=== PATIENT | male | born 1965 | race Caucasian/White ===

== ENCOUNTER 2018-07-15 21:06 | Emergency (ER) | payer MEDICAID ==
[~2018-07-15] VITALS: Ht 180.3 cm; Wt 58.0 kg
[~2018-07-15 21:06] MED LIST: MULT-1085 PO; NAPR-1144 PO; TYLENOL
[2018-07-15] MEDS ORDERED: ondansetron 4mg rapidly disintigrating tab PO ONE (22:05)
[2018-07-15] MEDS ORDERED: HYDROcodone/acetaminophen 10/325mg tab PO ONE (22:05)
[2018-07-15] MEDS ORDERED: diazepam 5mg tablet PO ONE (22:05)
[2018-07-15] MEDS ORDERED: VAL5T PO (23:25)
[2018-07-15] MEDS ORDERED: HYDR-3965 PO (23:25)
[2018-07-15] MEDS ORDERED: ONDA4TAB9 SL (23:25)
[2018-07-15] MEDS ORDERED: METH500T PO (23:25)
[2018-07-15 23:45] VITALS: BP 123/75
== END 2018-07-15 23:47 | disposition home or self-care (01) ==
LOC: ER 21:08
DX: S76.011A Strain of muscle, fascia and tendon of right hip, initial encounter (principal); Z79.899 Other long term (current) drug therapy; Y93.89 Activity, other specified; Y92.89 Other specified places as the place of occurrence of the external cause; Y99.8 Other external cause status
CPT/HCPCS: 72192; 99284

== ENCOUNTER 2018-10-30 02:15 | Emergency (ER) | payer MEDICAID ==
[~2018-10-30] VITALS: Ht 180.3 cm; Wt 77.0 kg
[~2018-10-30 02:15] MED LIST changes: +METH500T PO
[2018-10-30 02:18] VITALS: BP 129/77
[2018-10-30] MEDS ORDERED: TETanus/Pertussis (Acell)/Diphther VAC/PF (Tdap-Adult) 0.5ml syringe IM ONE (04:15)
[2018-10-30] MEDS ORDERED: LIDOcaine 1.5% w/epinephrine 1:200,000 5ml ampul IJ ONE (04:15)
[2018-10-30] MEDS ORDERED: sulfamethoxazole/trimethoprim DS (800/160mg) tablet PO ONE (04:20)
[2018-10-30] MEDS ORDERED: LIDOcaine 1% w/EPI 1:100,000 30ml vial (MDV) IJ ONE (04:30)
[2018-10-30] MEDS ORDERED: vancomycin/NS 1 GM ADD-VANTAGE 250 ML IV ONE (04:50)
[2018-10-30 05:31] LABS: ALANINE AMINOTRANSFERASE 28 U/L (12-78); ALBUMIN 3.5 G/DL (3.4-5.0); ALKALINE PHOSPHATASE 62 IU/L (46-116); ANION GAP 7 (8-16); ASPARTATE AMINO TRANSFERASE 23 U/L (10-37); BILIRUBIN,TOTAL 0.3 MG/DL (0.1-1.0); BLOOD UREA NITROGEN 12 MG/DL (7-18); BUN/CREATININE RATIO 14.3 (5.4-32.0); CALCIUM 8.7 MG/DL (8.5-10.1); CHLORIDE 104 MMOL/L (99-107); CREATININE 0.84 MG/DL (0.60-1.10); GLUCOSE 105 MG/DL (70-104); POTASSIUM 3.8 MMOL/L (3.5-5.1); SODIUM 139 MMOL/L (135-145); TOTAL CARBON DIOXIDE 28.2 MMOL/L (24-32); TOTAL PROTEIN 7.1 G/DL (6.4-8.2); eGFR > 90 ML/MIN
[2018-10-30] MEDS ORDERED: HYDR-4383 PO (05:36)
[2018-10-30] MEDS ORDERED: SULF1TAB48 PO (05:36)
[2018-10-30 05:41] LABS: BASOPHILS % (AUTO) 0.3 % (0-1); EOSINOPHILS # (AUTO) 0.1 X10'3 (0-0.9); EOSINOPHILS % (AUTO) 1.1 % (0-6); HEMATOCRIT 38.4 % (42.0-52.0); HEMOGLOBIN 12.8 g/dl (14.0-17.9); LYMPHOCYTES # (AUTO) 1.4 X10'3 (1.1-4.8); LYMPHOCYTES % (AUTO) 17.4 % (21-51); MEAN CORPUSCULAR HEMOGLOBIN 31.2 PG (27.0-31.0); MEAN CORPUSCULAR HGB CONC 33.4 % (33.0-36.5); MEAN CORPUSCULAR VOLUME 93.3 FL (78-98); MEAN PLATELET VOLUME 8.1 FL (7.4-10.4); MONOCYTES # (AUTO) 0.6 X10'3 (0-0.9); MONOCYTES % (AUTO) 7.8 % (2-12); NEUTROPHILS # (AUTO) 5.8 X10'3 (1.8-7.7); NEUTROPHILS % (AUTO) 73.4 % (42-75); PLATELET COUNT 196 X10'3 (140-440); RED BLOOD COUNT 4.11 X10'6 (4.70-6.10); RED CELL DISTRIBUTION WIDTH 15.2 % (11.5-14.5)
[2018-10-31] MEDS ORDERED: CEPH-572 PO (23:43)
== END 2018-10-30 06:49 | disposition home or self-care (01) ==
LOC: ER 02:16
DX: L02.413 Cutaneous abscess of right upper limb (principal); I89.1 Lymphangitis; Z98.890 Other specified postprocedural states; Z79.899 Other long term (current) drug therapy
CPT/HCPCS: 10060; 36415; 80053; 83605; 85025; 87040; 90471; 90715; 96365; 99283; J3370; J3490

== ENCOUNTER 2018-10-31 21:52 | Emergency (ER) | payer MEDICAID ==
[~2018-10-31] VITALS: Ht 180.3 cm; Wt 74.0 kg
[~2018-10-31 21:52] MED LIST changes: +HYDR-4383 PO; +SULF1TAB48 PO
[2018-10-31] MEDS ORDERED: CEPH-572 PO (23:43)
[2018-10-31 23:51] VITALS: BP 120/86
== END 2018-10-31 23:52 | disposition home or self-care (01) ==
LOC: ER 21:53
DX: L02.413 Cutaneous abscess of right upper limb (principal); M79.631 Pain in right forearm; Z98.890 Other specified postprocedural states; Z79.2 Long term (current) use of antibiotics; Z79.899 Other long term (current) drug therapy
CPT/HCPCS: 99283

== ENCOUNTER 2019-04-26 22:56 | Emergency (ER) | payer MEDICAID ==
[~2019-04-26] VITALS: Ht 180.3 cm; Wt 74.0 kg
[~2019-04-26 22:56] MED LIST changes: -SULF1TAB48 PO; +lidocaine 1%/epinephrine 1:100,000 injection 50ml vial ONE
[2019-04-26 23:24] VITALS: BP 115/73
[2019-04-27] MEDS ORDERED: SULF1TAB49 PO (02:03)
== END 2019-04-27 02:17 | disposition home or self-care (01) ==
LOC: ER 22:57
DX: L02.511 Cutaneous abscess of right hand (principal); Z79.899 Other long term (current) drug therapy; Z98.890 Other specified postprocedural states
CPT/HCPCS: 10060; 99283

== ENCOUNTER 2019-06-29 10:59 | Emergency (ER) | payer MEDICAID ==
[~2019-06-29] VITALS: Ht 180.3 cm; Wt 69.1 kg
[~2019-06-29 10:59] MED LIST changes: -lidocaine 1%/epinephrine 1:100,000 injection 50ml vial ONE
[2019-06-29 11:02] VITALS: BP 126/76
[2019-06-29] MEDS ORDERED: LIDOcaine 1% w/EPI 1:200,000 injection 10mL vial IM ONE (11:15)
[2019-06-29] MEDS ORDERED: LIDOcaine 1% W/epiNEPHrine 1:100,000 20ml vial IJ ONE (11:15)
[2019-06-29] MEDS ORDERED: SULF1TAB49 PO (11:26)
[2019-06-29] MEDS ORDERED: CEPH-572 PO (11:26)
== END 2019-06-29 11:43 | disposition home or self-care (01) ==
LOC: ER 10:59
DX: L02.511 Cutaneous abscess of right hand (principal); Z98.890 Other specified postprocedural states; Z79.2 Long term (current) use of antibiotics; Z79.899 Other long term (current) drug therapy
CPT/HCPCS: 10060; 99283

== ENCOUNTER 2019-08-27 20:08 | Emergency (ER) | payer MEDICAID ==
[~2019-08-27] VITALS: Ht 180.3 cm; Wt 71.4 kg
[2019-08-27 21:03] LABS: BASOPHILS % (AUTO) 0.2 % (0-1); EOSINOPHILS % (AUTO) 0.4 % (0-6); HEMATOCRIT 40.8 % (42.0-52.0); HEMOGLOBIN 13.8 g/dl (14.0-17.9); LYMPHOCYTES # (AUTO) 1.7 X10'3 (1.1-4.8); LYMPHOCYTES % (AUTO) 19.7 % (21-51); MEAN CORPUSCULAR HEMOGLOBIN 32.1 PG (27.0-31.0); MEAN CORPUSCULAR HGB CONC 33.9 g/dL (33.0-36.5); MEAN CORPUSCULAR VOLUME 94.9 FL (78-98); MEAN PLATELET VOLUME 7.9 FL (7.4-10.4); MONOCYTES # (AUTO) 0.9 X10'3 (0-0.9); MONOCYTES % (AUTO) 9.9 % (2-12); NEUTROPHILS # (AUTO) 6.1 X10'3 (1.8-7.7); NEUTROPHILS % (AUTO) 69.8 % (42-75); PLATELET COUNT 230 X10'3 (140-440); RED CELL DISTRIBUTION WIDTH 14.1 % (11.5-14.5); WHITE BLOOD COUNT 8.8 X10'3 (4.5-11.0)
[2019-08-27 21:11] LABS: PARTIAL THROMBOPLASTIN TIME 29 SECONDS (22-32)
[2019-08-27 21:17] LABS: ALANINE AMINOTRANSFERASE 30 U/L (12-78); ALBUMIN/GLOBULIN RATIO 1.1 (1.1-1.5); ALKALINE PHOSPHATASE 84 IU/L (46-116); ANION GAP 9 (8-16); ASPARTATE AMINO TRANSFERASE 29 U/L (10-37); BILIRUBIN,TOTAL 0.6 MG/DL (0.1-1.0); BLOOD UREA NITROGEN 17 MG/DL (7-18); CALCIUM 9.4 MG/DL (8.5-10.1); CHLORIDE 103 MMOL/L (99-107); GLUCOSE 84 MG/DL (70-104); POTASSIUM 3.6 MMOL/L (3.5-5.1); SODIUM 142 MMOL/L (135-145); TOTAL CARBON DIOXIDE 29.9 MMOL/L (24-32); TOTAL PROTEIN 7.8 G/DL (6.4-8.2); eGFR 78 ML/MIN
[2019-08-27] MEDS ORDERED: SULF1TAB49 PO (22:10)
[2019-08-27] MEDS ORDERED: ketorolac trometh inj. 60 MG/2 ML VIAL IM ONE (22:10)
[2019-08-27] MEDS ORDERED: acetaminophen 325mg tablet PO ONE (22:10)
[2019-08-27] MEDS ORDERED: sulfamethoxazole/trimethoprim DS (800/160mg) tablet PO ONE (22:10)
[2019-08-27] MEDS ORDERED: TETanus/Pertussis (Acell)/Diphther VAC/PF (Tdap-Adult) 0.5ml syringe IMVAC ONE (22:10)
[2019-08-27 22:20] VITALS: BP 123/74
== END 2019-08-27 22:32 | disposition home or self-care (01) ==
LOC: ER 20:10
DX: L03.115 Cellulitis of right lower limb (principal); Z98.890 Other specified postprocedural states; Z79.899 Other long term (current) drug therapy
CPT/HCPCS: 36415; 73564; 80053; 83605; 84145; 85025; 85610; 85730; 87040; 90471; 90715; 96372; 99284; J1885

== ENCOUNTER 2019-08-29 14:02 | Emergency (ER) | payer MEDICAID ==
[~2019-08-29] VITALS: Ht 180.3 cm; Wt 75.0 kg
[~2019-08-29 14:02] MED LIST changes: +SULF1TAB49 PO
[2019-08-29 14:26] VITALS: BP 109/75
--- NOTE | 2019-08-29 15:56 | NUR ---
NOT IN LOBBY
== END 2019-08-29 17:48 | disposition left against medical advice (07) ==
LOC: ER 14:03
DX: M25.561 Pain in right knee (principal); Z53.21 Procedure and treatment not carried out due to patient leaving prior to being seen by health care provider
CPT/HCPCS: 93005

== ENCOUNTER 2019-11-18 21:38 | Emergency (ER) | payer MEDICAID ==
[~2019-11-18] VITALS: Ht 180.3 cm; Wt 68.2 kg
[~2019-11-18 21:38] MED LIST changes: -SULF1TAB49 PO
[2019-11-18 21:50] VITALS: BP 112/63
[2019-11-18] MEDS ORDERED: ondansetron 4mg rapidly disintigrating tab PO ONE (22:35)
[2019-11-18] MEDS ORDERED: HYDROcodone/acetaminophen 5mg/325mg tablet PO ONE (22:35)
[2019-11-18] MEDS ORDERED: PENI500T2 PO (22:36)
[2019-11-18] MEDS ORDERED: IBUP-1984 PO (22:36)
== END 2019-11-18 22:48 | disposition home or self-care (01) ==
LOC: ER 21:39
DX: K04.7 Periapical abscess without sinus (principal); Z72.89 Other problems related to lifestyle; Z98.890 Other specified postprocedural states; Z79.899 Other long term (current) drug therapy
CPT/HCPCS: 99283

== ENCOUNTER 2020-02-13 21:07 | Emergency (ER) | payer MEDICAID ==
[~2020-02-13] VITALS: Ht 180.3 cm; Wt 69.1 kg
[2020-02-13 22:06] LABS: CLARITY,URINE CLEAR (Clear); COLOR,URINE YELLOW (Yellow); GLUCOSE, URINE NEGATIVE (Neg); KETONES,URINE NEGATIVE (Neg); LEUKOCYTE ESTERASE ,URINE NEGATIVE (Neg); NITRITES, URINE NEGATIVE (Neg); OCCULT BLOOD,URINE NEGATIVE (Neg); PH,URINE 5.5 (4.8-8.0); PROTEIN,URINE NEGATIVE (Neg); UROBILINOGEN,URINE 0.2 E.U/dL (0.2-1.0)
[2020-02-13 22:13] LABS: UA COLLECTION TYPE CLN CATCH MIDSTREAM
[2020-02-13 22:17] LABS: URINE AMPHETAMINE SCREEN POSITIVE (Neg); URINE BARBITUATE SCREEN NEGATIVE (Neg); URINE BENZODIAZEPINES SCREEN NEGATIVE (Neg); URINE CANNABINOID SCREEN POSITIVE (Neg); URINE COCAINE SCREEN NEGATIVE (Neg); URINE METHADONE SCREEN NEGATIVE (Neg); URINE OPIATE SCREEN NEGATIVE (Neg); URINE PHENCYCLIDINE SCREEN NEGATIVE (Neg)
[2020-02-13] MEDS ORDERED: sulfamethoxazole/trimethoprim DS (800/160mg) tablet PO ONE (22:20)
[2020-02-13] MEDS ORDERED: SULF1TAB49 PO (22:22)
[2020-02-13 22:32] VITALS: BP 138/89
== END 2020-02-13 22:34 | disposition home or self-care (01) ==
LOC: ER 21:07
DX: L02.415 Cutaneous abscess of right lower limb (principal); R53.83 Other fatigue; F17.200 Nicotine dependence, unspecified, uncomplicated; F12.90 Cannabis use, unspecified, uncomplicated; Z79.899 Other long term (current) drug therapy; Z72.89 Other problems related to lifestyle; Z98.890 Other specified postprocedural states
CPT/HCPCS: 80305; 81003; 99283

== ENCOUNTER 2020-02-15 07:46 | Emergency (ER) | payer MEDICAID ==
[~2020-02-15] VITALS: Ht 180.3 cm; Wt 70.5 kg
[~2020-02-15 07:46] MED LIST changes: +SULF1TAB49 PO
[2020-02-15] MEDS ORDERED: LIDOcaine 1% W/epiNEPHrine 1:100,000 20ml vial SQ ONE (08:25)
[2020-02-15] MEDS ORDERED: ethyl chloride 103.5ml spray TP ONE (09:05)
[2020-02-15 10:00] VITALS: BP 130/89
== END 2020-02-15 10:02 | disposition home or self-care (01) ==
LOC: ER 07:47
DX: L02.415 Cutaneous abscess of right lower limb (principal); F12.90 Cannabis use, unspecified, uncomplicated; Z98.890 Other specified postprocedural states; Z79.2 Long term (current) use of antibiotics; Z79.899 Other long term (current) drug therapy
CPT/HCPCS: 10060; 87070; 87077; 87186; 99283

== ENCOUNTER 2020-05-07 12:17 | Emergency (ER) | payer MEDICAID ==
[~2020-05-07 12:17] MED LIST changes: -SULF1TAB49 PO
--- NOTE | 2020-05-07 14:01 | NUR ---
Called patient after attempting to bring patient back to a room x3. Called patient and left voice mail due to no answer, Patient informed to come back to ED or call the ER if still needing to be seen.
[2020-05-08] MEDS ORDERED: CEPH500C5 PO (05:33)
[2020-05-08] MEDS ORDERED: SULF1TAB49 PO (05:33)
== END 2020-05-07 14:06 | disposition left against medical advice (07) ==
LOC: ER 12:18
DX: L02.91 Cutaneous abscess, unspecified (principal); Z53.21 Procedure and treatment not carried out due to patient leaving prior to being seen by health care provider

== ENCOUNTER 2020-05-08 04:18 | Emergency (ER) | payer MEDICAID ==
[~2020-05-08] VITALS: Ht 177.8 cm; Wt 75.0 kg
[2020-05-08] MEDS ORDERED: SULF1TAB49 PO (05:33)
[2020-05-08] MEDS ORDERED: CEPH500C5 PO (05:33)
[2020-05-08 06:01] VITALS: BP 160/77
== END 2020-05-08 06:02 | disposition home or self-care (01) ==
LOC: ER 04:18
DX: L03.114 Cellulitis of left upper limb (principal); R22.0 Localized swelling, mass and lump, head; K02.9 Dental caries, unspecified; F17.200 Nicotine dependence, unspecified, uncomplicated; F12.90 Cannabis use, unspecified, uncomplicated; Z86.14 Personal history of Methicillin resistant Staphylococcus aureus infection; Z79.899 Other long term (current) drug therapy
CPT/HCPCS: 87070; 87077; 87186; 99283

== ENCOUNTER 2020-08-05 07:39 | Day surgery (SDC) | payer MEDICAID, OTHER ==
[2020-07-29 10:31] LABS: BASOPHILS % (AUTO) 0.5 % (0-1); EOSINOPHILS # (AUTO) 0.1 X10'3 (0-0.9); EOSINOPHILS % (AUTO) 1.1 % (0-6); LYMPHOCYTES % (AUTO) 42.6 % (21-51); MEAN CORPUSCULAR HEMOGLOBIN 31.5 PG (27.0-31.0); MEAN CORPUSCULAR HGB CONC 33.3 g/dL (33.0-36.5); MEAN CORPUSCULAR VOLUME 94.4 FL (78-98); MEAN PLATELET VOLUME 8.3 FL (7.4-10.4); MONOCYTES # (AUTO) 0.5 X10'3 (0-0.9); MONOCYTES % (AUTO) 10.4 % (2-12); NEUTROPHILS # (AUTO) 2.2 X10'3 (1.8-7.7); NEUTROPHILS % (AUTO) 45.4 % (42-75); PRE OP PLATELET COUNT 208 X10'3 (140-440); RED BLOOD COUNT 4.13 X10'6 (4.70-6.10); RED CELL DISTRIBUTION WIDTH 14.6 % (11.5-14.5)
[2020-07-29 11:04] LABS: ALBUMIN 3.6 G/DL (3.4-5.0); ALBUMIN/GLOBULIN RATIO 1.2 (1.1-1.5); ALKALINE PHOSPHATASE 58 IU/L (46-116); BLOOD UREA NITROGEN 20 MG/DL (7-18); BUN/CREATININE RATIO 16.7 (5.4-32.0); CALCIUM 8.9 MG/DL (8.5-10.1); CHLORIDE 106 MMOL/L (99-107); PRE OP ALT 31 U/L (30-65); PRE OP ANION GAP 11 (8-16); PRE OP AST 27 U/L (10-37); PRE OP BILIRUB, TOTAL 0.3 MG/DL (0.0-1.0); PRE OP GLUCOSE 77 MG/DL (70-104); PRE OP POTASSIUM 3.7 MMOL/L (3.4-5.1); PRE OP SODIUM 145 MMOL/L (135-145); TOTAL CARBON DIOXIDE 27.6 MMOL/L (24-32); TOTAL PROTEIN 6.7 G/DL (6.4-8.2); eGFR 63 ML/MIN
[~2020-08-05] VITALS: Ht 180.3 cm; Wt 70.8 kg
[2020-08-05] VITALS (21 sets, daily range): BP systolic 94–132; BP diastolic 54–101
[~2020-08-05 07:39] MED LIST changes: +AMOX500C4 PO; +BUPIVAcaine/PF 2.5 mg/ml (0.25%) 30ml vial ONE; -HYDR-4383 PO; +IBUP-1986 PO; +LIDOcaine 1% 30ml preserv. free vial ONE; -METH500T PO; -MULT-1085 PO; -NAPR-1144 PO; -TYLENOL; +albuterol 2.5 MG/3 ML nebule NEB ONE; +cefazolin/dext.iso 2gm/50ml 50 ML IV ONE; +famotidine 20mg tablet PO ONE; +ringers solution, lacted 1,000 ML IV SCH
[2020-08-05] MEDS ORDERED: sevoflurane 250ml liquid IH ONE (09:37)
[2020-08-05] MEDS ORDERED: fentaNYL/PF 50MCG/1 ML 2ML syringe ONE (09:42)
[2020-08-05] MEDS ORDERED: midazolam 2 mg/2 ml injection ONE (09:42)
[2020-08-05] MEDS ORDERED: morphine 4 MG/ML inj SYRINge IV PRN (10:20)
[2020-08-05] MEDS ORDERED: meperidine/PF 25mg/ml syringe IV PRN ×2 (10:20)
[2020-08-05] MEDS ORDERED: ringers solution, lacted 1,000 ML IV SCH (10:20)
[2020-08-05] MEDS ORDERED: ondansetron/PF 4mg/2ml inj IV PRN (10:20)
[2020-08-05] MEDS ORDERED: morphine 2 MG/ML inj. syringe IV PRN (10:20)
[2020-08-05] MEDS ORDERED: proCHLORperazine 10 MG/2 ml inj IV PRN (10:20)
[2020-08-05] MEDS ORDERED: rocuronium 10mg/ml inj IV ONE (10:24)
[2020-08-05] MEDS ORDERED: neostigmine methylsulfate 1 MG/ML 10ml vial ONE (10:24)
[2020-08-05] MEDS ORDERED: LIDOcaine 2% (20mg/ml) 5ml vial ONE (10:24)
[2020-08-05] MEDS ORDERED: dexamethasone sod phosphate 4mg/ml inj. ONE (10:24)
[2020-08-05] MEDS ORDERED: glycopyrrolate 0.2mg/ml inj ONE (10:24)
[2020-08-05] MEDS ORDERED: ondansetron/PF 4mg/2ml inj ONE ×2 (10:24→10:26)
[2020-08-05] MEDS ORDERED: propofol inj 20 ML IV ONE (10:24)
[2020-08-05] MEDS ORDERED: phenylephrine 10mg/ml inj. ONE (10:26)
[2020-08-05] MEDS ORDERED: ePHEDrine 50MG/ML INJ. ONE (10:26)
--- NOTE | 2020-08-05 11:17 | NUR ---
RECEIVED FROM OR VIA [facility] ACCOMPANIED BY ANESTHESIOLOGIST DR CORDERO, REPORT GIVEN. PT DROWSY BUT AROUSES WITH COMPLAINT OF PAIN AT LEVEL 8. 20 GAUGE PIV L AC PATENT AND RUNNING LR AT 100 ML/HR. LG BANDAID DRESSING X3 TO ABD CDI, ABD SOFT, ARROYO. PPULSES PALPSBLE, BRISK CAP REFILL, SKIN PINK AND WARM, VSS.
[2020-08-05] MEDS: meperidine/PF 25mg/ml syringe IV PRN ×2 (11:29→11:51)
[2020-08-05] MEDS ORDERED: HYDROcodone/acetaminophen 10/325mg tab PO PRN (11:35)
[2020-08-05] MEDS ORDERED: HYDROcodone/acetaminophen 5mg/325mg tablet PO PRN (11:35)
--- NOTE | 2020-08-05 16:27 | NUR ---
PT AWAKE AND ALERT WITH COMPLAINT OF PAIN AT LEVEL 3. 20 GAUGE PIV L AC DC/D CATH TIP INTACT. LG BANDAID DRESSING X3 TO ABD CDI, ABD SOFT, ARROYO. PPULSES PALPABLE, BRISK CAP REFILL, SKIN PINK AND WARM, VSS. TOLERATING FLUIDS, ABLE TO DRESS SELF AND AMBULATE WITH NO ASSIST. ABLE TO VOID 150 ML, BLADDER SCAN PERFORMED SHOWING 70 ML. PT CHOSE THE OPTION TO GO HOME. DISCHARGE INSTRUCTIONS GIVEN AND PT VERBALIZED UNDERSTANDING. TRANSPORTED VIA WHEELCHAIR TO FRIEND IN PRIVATE VEHICLE TO HOME.
== END 2020-08-05 16:27 | disposition home or self-care (01) ==
LOC: PAS 07:39
PROVIDERS: ATTEND Surgery
DX: K40.20 Bilateral inguinal hernia, without obstruction or gangrene, not specified as recurrent (principal); K42.9 Umbilical hernia without obstruction or gangrene; F17.210 Nicotine dependence, cigarettes, uncomplicated; F41.9 Anxiety disorder, unspecified; F32.9 Major depressive disorder, single episode, unspecified; M19.90 Unspecified osteoarthritis, unspecified site; G47.33 Obstructive sleep apnea (adult) (pediatric); Z87.442 Personal history of urinary calculi; Z20.828 Contact with and (suspected) exposure to other viral communicable diseases; Z98.890 Other specified postprocedural states; Z86.73 Personal history of transient ischemic attack (TIA), and cerebral infarction without residual deficits; Z79.899 Other long term (current) drug therapy; Z83.3 Family history of diabetes mellitus; Z80.42 Family history of malignant neoplasm of prostate; Z82.61 Family history of arthritis; Z80.0 Family history of malignant neoplasm of digestive organs
CPT/HCPCS: 36415; 49585; 49650; 71046; 80053; 82948; 85025; 87635; 93005; C1781; J1100; J2001; J2175; J2250; J2370; J2405; J2704; J2710; J3010; J3490; J7120; S2900; A4215; A4618

== ENCOUNTER 2020-10-18 01:35 | Emergency (ER) | payer MEDICAID, OTHER ==
[~2020-10-18] VITALS: Ht 180.3 cm; Wt 70.0 kg
[~2020-10-18 01:35] MED LIST changes: -BUPIVAcaine/PF 2.5 mg/ml (0.25%) 30ml vial ONE; -LIDOcaine 1% 30ml preserv. free vial ONE; -albuterol 2.5 MG/3 ML nebule NEB ONE; -cefazolin/dext.iso 2gm/50ml 50 ML IV ONE; -famotidine 20mg tablet PO ONE; -ringers solution, lacted 1,000 ML IV SCH
[2020-10-18 01:38] VITALS: BP 125/82
[2020-10-18] MEDS ORDERED: DOXYCYCLINE 100MG CAPSULE PO STA (01:44)
[2020-10-18] MEDS ORDERED: TETanus/Pertussis (Acell)/Diphther VAC/PF (Tdap-Adult) 0.5ml syringe IMVAC ONE (01:45)
[2020-10-18] MEDS ORDERED: DOXY100C43 PO (01:46)
== END 2020-10-18 02:48 | disposition home or self-care (01) ==
LOC: ER 01:35
DX: L03.114 Cellulitis of left upper limb (principal); F12.90 Cannabis use, unspecified, uncomplicated; F17.200 Nicotine dependence, unspecified, uncomplicated; Z86.14 Personal history of Methicillin resistant Staphylococcus aureus infection; Z98.890 Other specified postprocedural states; Z88.2 Allergy status to sulfonamides; Z88.8 Allergy status to other drugs, medicaments and biological substances; Z79.2 Long term (current) use of antibiotics; Z72.89 Other problems related to lifestyle
CPT/HCPCS: 90471; 90715; 99283

== ENCOUNTER 2020-10-22 07:24 | Emergency (ER) | payer MEDICAID ==
[~2020-10-22] VITALS: Ht 180.3 cm; Wt 72.4 kg
[~2020-10-22 07:24] MED LIST changes: +DOXY100C43 PO
[2020-10-22 07:26] VITALS: BP 121/82
[2020-10-22] MEDS ORDERED: LIDOcaine 1% W/epiNEPHrine 1:200,000 10ml vial IJ ONE (07:55)
--- NOTE | 2020-10-22 08:55 | NUR ---
left arm wound cleaned with ns, bulkey dressing applied
== END 2020-10-22 08:58 | disposition home or self-care (01) ==
LOC: ER 07:25
DX: L02.414 Cutaneous abscess of left upper limb (principal); F12.90 Cannabis use, unspecified, uncomplicated; Z88.2 Allergy status to sulfonamides; Z88.8 Allergy status to other drugs, medicaments and biological substances; Z79.2 Long term (current) use of antibiotics; Z79.899 Other long term (current) drug therapy; Z98.890 Other specified postprocedural states; Z86.14 Personal history of Methicillin resistant Staphylococcus aureus infection
CPT/HCPCS: 10060; 99284

== ENCOUNTER 2021-01-05 13:45 | Emergency (ER) | payer MEDICAID ==
[~2021-01-05] VITALS: Ht 180.3 cm; Wt 67.0 kg
[~2021-01-05 13:45] MED LIST changes: -DOXY100C43 PO
[2021-01-05 14:11] VITALS: BP 127/78
[2021-01-05] MEDS ORDERED: ONDA4TAB6 PO (15:58)
[2021-01-05] MEDS ORDERED: CLIN150C8 PO (15:58)
== END 2021-01-05 16:04 | disposition home or self-care (01) ==
LOC: ER 13:46
DX: S50.811A Abrasion of right forearm, initial encounter (principal); S00.411A Abrasion of right ear, initial encounter; L03.113 Cellulitis of right upper limb; F12.90 Cannabis use, unspecified, uncomplicated; Z86.14 Personal history of Methicillin resistant Staphylococcus aureus infection; Z98.890 Other specified postprocedural states; Z88.1 Allergy status to other antibiotic agents; Z88.8 Allergy status to other drugs, medicaments and biological substances; Z79.2 Long term (current) use of antibiotics; Z79.899 Other long term (current) drug therapy; X58.XXXA Exposure to other specified factors, initial encounter; Y93.89 Activity, other specified; Y92.89 Other specified places as the place of occurrence of the external cause; Y99.8 Other external cause status
CPT/HCPCS: 99283

== ENCOUNTER 2021-01-06 20:56 | Emergency (ER) | payer MEDICAID ==
[~2021-01-06] VITALS: Ht 180.3 cm; Wt 68.9 kg
[~2021-01-06 20:56] MED LIST changes: +CLIN150C8 PO; +ONDA4TAB6 PO
[2021-01-06 20:57] VITALS: BP 105/74
[2021-01-06] MEDS ORDERED: LIDOcaine 1% W/epiNEPHrine 1:200,000 10ml vial IJ ONE (22:05)
== END 2021-01-06 22:36 | disposition home or self-care (01) ==
LOC: ER 20:57
DX: L02.413 Cutaneous abscess of right upper limb (principal); F12.90 Cannabis use, unspecified, uncomplicated; Z86.14 Personal history of Methicillin resistant Staphylococcus aureus infection; Z98.890 Other specified postprocedural states; Z88.1 Allergy status to other antibiotic agents; Z88.8 Allergy status to other drugs, medicaments and biological substances; Z79.899 Other long term (current) drug therapy
CPT/HCPCS: 10060; 99282

== ENCOUNTER → 2021-04-10 | Emergency (ER) | payer MEDICAID ==
[~2021-04-10] VITALS: Ht 180.3 cm; Wt 72.7 kg
[~2021-04-10] MED LIST changes: +HYDR-3972 PO; +HYDROcodone/acetaminophen 10/325mg tab PO ONE; +PENI500T2 PO; +penicillin V potassium 500mg tablet PO ONE
[2021-04-10 04:02] VITALS: BP 123/89
== END | disposition home or self-care (01) ==
LOC: ER 00:55
DX: K04.7 Periapical abscess without sinus (principal); Z88.2 Allergy status to sulfonamides
CPT/HCPCS: 99283

== ENCOUNTER 2021-05-07 18:59 | Emergency (ER) | payer MEDICAID ==
[~2021-05-07] VITALS: Ht 180.3 cm; Wt 75.0 kg
[~2021-05-07 18:59] MED LIST changes: -HYDROcodone/acetaminophen 10/325mg tab PO ONE; -penicillin V potassium 500mg tablet PO ONE
[2021-05-07 19:05] VITALS: BP 107/77
[2021-05-07] MEDS ORDERED: bacitracin 15gm ointment TP ONE (21:25)
[2021-05-07] MEDS ORDERED: TETanus/Pertussis (Acell)/Diphther VAC/PF (Tdap-Adult) 0.5ml syringe IMVAC ONE (21:25)
[2021-05-07] MEDS ORDERED: ondansetron 4mg rapidly disintigrating tab PO ONE (21:25)
[2021-05-07] MEDS ORDERED: HYDROcodone/acetaminophen 5mg/325mg tablet PO ONE (21:25)
[2021-05-07] MEDS ORDERED: LIDOcaine 1% W/epiNEPHrine 1:200,000 10ml vial IJ ONE (21:25)
[2021-05-07] MEDS ORDERED: IBUP-1984 PO (22:45)
[2021-05-07] MEDS ORDERED: CEPH250T PO (22:45)
== END 2021-05-07 22:56 | disposition home or self-care (01) ==
LOC: ER 19:00
DX: S61.313A Laceration without foreign body of left middle finger with damage to nail, initial encounter (principal); M79.645 Pain in left finger(s); F12.90 Cannabis use, unspecified, uncomplicated; Z98.890 Other specified postprocedural states; Z88.1 Allergy status to other antibiotic agents; Z88.8 Allergy status to other drugs, medicaments and biological substances; Z79.2 Long term (current) use of antibiotics; Z20.3 Contact with and (suspected) exposure to rabies; Z79.899 Other long term (current) drug therapy; X58.XXXA Exposure to other specified factors, initial encounter; Y93.89 Activity, other specified; Y92.89 Other specified places as the place of occurrence of the external cause; Y99.8 Other external cause status
CPT/HCPCS: 11760; 73140; 90471; 90715; 99284

== ENCOUNTER 2021-06-14 11:14 | Emergency (ER) | payer MEDICAID ==
[~2021-06-14] VITALS: Ht 175.3 cm; Wt 70.0 kg
[~2021-06-14 11:14] MED LIST changes: -HYDR-3972 PO; -PENI500T2 PO
[2021-06-14 11:20] VITALS: BP 110/70
[2021-06-14] MEDS ORDERED: LIDOcaine 1% 30ml preserv. free vial SQ ONE (12:50)
[2021-06-14] MEDS ORDERED: CEPH-585 PO (14:22)
== END 2021-06-14 14:38 | disposition home or self-care (01) ==
LOC: ER 11:14
DX: S61.313D Laceration without foreign body of left middle finger with damage to nail, subsequent encounter (principal); L02.512 Cutaneous abscess of left hand; F12.90 Cannabis use, unspecified, uncomplicated; Z86.14 Personal history of Methicillin resistant Staphylococcus aureus infection; Z98.890 Other specified postprocedural states; Z88.2 Allergy status to sulfonamides; Z88.8 Allergy status to other drugs, medicaments and biological substances; Z79.899 Other long term (current) drug therapy; X58.XXXD Exposure to other specified factors, subsequent encounter
CPT/HCPCS: 29130; 87070; 87077; 87186; 99283; 99284

== ENCOUNTER 2021-06-18 00:53 | Emergency (ER) | payer MEDICAID ==
[~2021-06-18] VITALS: Ht 180.3 cm; Wt 74.1 kg
[~2021-06-18 00:53] MED LIST changes: +CEPH-585 PO
[2021-06-18 00:55] VITALS: BP 119/85
[2021-06-18] MEDS ORDERED: TETR-59 PO (01:02)
== END 2021-06-18 01:17 | disposition home or self-care (01) ==
LOC: ER 00:53
DX: S67.193D Crushing injury of left middle finger, subsequent encounter (principal); F17.200 Nicotine dependence, unspecified, uncomplicated; F12.90 Cannabis use, unspecified, uncomplicated; Z98.890 Other specified postprocedural states; Z88.1 Allergy status to other antibiotic agents; Z88.8 Allergy status to other drugs, medicaments and biological substances; Z79.2 Long term (current) use of antibiotics; Z79.899 Other long term (current) drug therapy; X58.XXXD Exposure to other specified factors, subsequent encounter
CPT/HCPCS: 99283

== ENCOUNTER 2021-09-17 23:32 | Emergency (ER) | payer MEDICAID ==
[~2021-09-17] VITALS: Ht 180.3 cm; Wt 70.5 kg
[2021-09-17 23:36] VITALS: BP 120/74
== END 2021-09-18 06:49 | disposition left against medical advice (07) ==
LOC: ER 23:33
DX: S61.217A Laceration without foreign body of left little finger without damage to nail, initial encounter (principal); S61.215A Laceration without foreign body of left ring finger without damage to nail, initial encounter; Z53.21 Procedure and treatment not carried out due to patient leaving prior to being seen by health care provider; X58.XXXA Exposure to other specified factors, initial encounter; Y93.9 Activity, unspecified; Y92.9 Unspecified place or not applicable; Y99.9 Unspecified external cause status

== ENCOUNTER 2021-11-11 03:54 | Emergency (ER) | payer MEDICAID ==
[~2021-11-11] VITALS: Ht 180.3 cm; Wt 72.7 kg
[2021-11-11] MEDS ORDERED: morphine 4 MG/ML inj SYRINge IV ONE ×2 (04:15→05:55)
[2021-11-11] MEDS ORDERED: ondansetron/PF 4mg/2ml inj IV ONE (04:15)
[2021-11-11 04:29] LABS: BASOPHILS # (AUTO) 0.1 X10'3 (0-0.2); BASOPHILS % (AUTO) 0.7 % (0-1); EOSINOPHILS # (AUTO) 0.1 X10'3 (0-0.9); EOSINOPHILS % (AUTO) 0.7 % (0-6); HEMATOCRIT 37.5 % (42.0-52.0); HEMOGLOBIN 12.7 g/dl (14.0-17.9); LYMPHOCYTES # (AUTO) 1.1 X10'3 (1.1-4.8); LYMPHOCYTES % (AUTO) 14.9 % (21-51); MEAN CORPUSCULAR HEMOGLOBIN 31.6 PG (27.0-31.0); MEAN PLATELET VOLUME 7.8 FL (7.4-10.4); MONOCYTES # (AUTO) 0.8 X10'3 (0-0.9); MONOCYTES % (AUTO) 10.8 % (2-12); NEUTROPHILS # (AUTO) 5.3 X10'3 (1.8-7.7); NEUTROPHILS % (AUTO) 72.9 % (42-75); PLATELET COUNT 210 X10'3 (140-440); RED BLOOD COUNT 4.03 X10'6 (4.70-6.10); RED CELL DISTRIBUTION WIDTH 14.7 % (11.5-14.5); WHITE BLOOD COUNT 7.3 X10'3 (4.5-11.0)
[2021-11-11 04:44] LABS: ALANINE AMINOTRANSFERASE 29 U/L (12-78); ALBUMIN 3.5 G/DL (3.4-5.0); ALBUMIN/GLOBULIN RATIO 1.1 (1.1-1.5); ALKALINE PHOSPHATASE 60 IU/L (46-116); ANION GAP 4 (8-16); ASPARTATE AMINO TRANSFERASE 29 U/L (10-37); BILIRUBIN,TOTAL 0.4 MG/DL (0.1-1.0); BLOOD UREA NITROGEN 24 MG/DL (7-18); BUN/CREATININE RATIO 15.2 (5.4-32.0); CALCIUM 8.5 MG/DL (8.5-10.1); CHLORIDE 108 MMOL/L (99-107); CREATININE 1.58 MG/DL (0.60-1.10); GLUCOSE 99 MG/DL (70-104); POTASSIUM 4.1 MMOL/L (3.5-5.1); SODIUM 141 MMOL/L (135-145); TOTAL CARBON DIOXIDE 28.8 MMOL/L (24-32); TOTAL PROTEIN 6.7 G/DL (6.4-8.2); eGFR 45 ML/MIN
[2021-11-11] MEDS ORDERED: normal saline 1000ml 1,000 ML IV ONE (05:50)
[2021-11-11 05:56] LABS: CLARITY,URINE CLEAR (Clear); COLOR,URINE ORANGE (Yellow)
[2021-11-11] MEDS ORDERED: ONDA-104 PO (05:56)
[2021-11-11] MEDS ORDERED: HYDR-3965 PO (05:56)
[2021-11-11 06:08] LABS: URINE AMPHETAMINE SCREEN POSITIVE (Neg); URINE BARBITUATE SCREEN NEGATIVE (Neg); URINE BENZODIAZEPINES SCREEN NEGATIVE (Neg); URINE CANNABINOID SCREEN POSITIVE (Neg); URINE COCAINE SCREEN NEGATIVE (Neg); URINE METHADONE SCREEN NEGATIVE (Neg); URINE OPIATE SCREEN POSITIVE (Neg); URINE PHENCYCLIDINE SCREEN NEGATIVE (Neg)
[2021-11-11 06:27] LABS: UA COLLECTION TYPE CLN CATCH MIDSTREAM
[2021-11-11 06:29] LABS: BACTERIA,URINE NONE SEEN /HPF (Neg); CAL OXALATE CRYSTALS 1+ /HPF (NEGATIVE); HYALINE CASTS 0-3 /LPF (NEGATIVE); MUCUS STRANDS NONE SEEN /LPF (Neg); RBC,URINE NONE SEEN /HPF (0-2); SQUAMOUS EPITHELIAL CELL,UR NONE SEEN /LPF (FEW); WBC,URINE NONE SEEN /HPF (0-4)
--- NOTE | 2021-11-11 06:47 | NUR ---
Report received from JUAN Pathak.
[2021-11-11 09:54] VITALS: BP 115/75
== END 2021-11-11 09:56 | disposition home or self-care (01) ==
LOC: ER 03:55
DX: N20.1 Calculus of ureter (principal); N13.30 Unspecified hydronephrosis; R33.9 Retention of urine, unspecified; R30.0 Dysuria; F12.90 Cannabis use, unspecified, uncomplicated; Z87.442 Personal history of urinary calculi; Z86.14 Personal history of Methicillin resistant Staphylococcus aureus infection; Z98.890 Other specified postprocedural states; Z88.1 Allergy status to other antibiotic agents; Z88.8 Allergy status to other drugs, medicaments and biological substances; Z79.2 Long term (current) use of antibiotics; Z79.899 Other long term (current) drug therapy
CPT/HCPCS: 36415; 74176; 80053; 80305; 81001; 85025; 96361; 96374; 96375; 96376; 99284; J2270; J2405; J7030

== ENCOUNTER 2021-11-14 01:01 | Emergency (ER) | payer MEDICAID ==
[~2021-11-14 01:01] MED LIST changes: +HYDR-3965 PO; +ONDA-104 PO
== END 2021-11-14 04:02 | disposition left against medical advice (07) ==
LOC: ER 01:01
DX: R10.9 Unspecified abdominal pain (principal); Z53.21 Procedure and treatment not carried out due to patient leaving prior to being seen by health care provider

== ENCOUNTER 2022-01-16 23:02 | Emergency (ER) | payer MEDICAID ==
[~2022-01-16] VITALS: Ht 180.3 cm; Wt 74.5 kg
[~2022-01-16 23:02] MED LIST changes: -HYDR-3965 PO
[2022-01-16 23:10] VITALS: BP 128/73
== END 2022-01-16 23:59 | disposition home or self-care (01) ==
LOC: ER 23:03
DX: S62.632A Displaced fracture of distal phalanx of right middle finger, initial encounter for closed fracture (principal); M79.644 Pain in right finger(s); F12.90 Cannabis use, unspecified, uncomplicated; Z87.442 Personal history of urinary calculi; Z86.14 Personal history of Methicillin resistant Staphylococcus aureus infection; Z98.890 Other specified postprocedural states; Z88.1 Allergy status to other antibiotic agents; Z88.8 Allergy status to other drugs, medicaments and biological substances; Z79.2 Long term (current) use of antibiotics; Z79.899 Other long term (current) drug therapy; X58.XXXA Exposure to other specified factors, initial encounter; Y93.89 Activity, other specified; Y92.89 Other specified places as the place of occurrence of the external cause; Y99.8 Other external cause status
CPT/HCPCS: 29130; 73140; 99283

== ENCOUNTER 2022-04-08 22:05 | Emergency (ER) | payer MEDICAID ==
[~2022-04-08] VITALS: Ht 180.3 cm; Wt 70.5 kg
[2022-04-08 22:09] VITALS: BP 120/75
== END 2022-04-09 01:42 | disposition left against medical advice (07) ==
LOC: ER 22:06
DX: R42 Dizziness and giddiness (principal); Z53.21 Procedure and treatment not carried out due to patient leaving prior to being seen by health care provider

== ENCOUNTER 2022-09-28 07:11 | Inpatient (IN) | payer MEDICAID ==
[~2022-09-28] VITALS: Ht 180.3 cm; Wt 72.0 kg
[~2022-09-28 07:11] MED LIST changes: -CEPH-585 PO
[2022-09-28] MEDS ORDERED: vancomycin/NS 1 GM ADD-VANTAGE 250 ML IV ONE (08:45)
[2022-09-28] MEDS ORDERED: CefTRIAXone 2gm/D5W 50ml BAG 50 ML IV ONE (08:45)
[2022-09-28] MEDS ORDERED: ondansetron/PF 4mg/2ml inj IV ONE (08:45)
[2022-09-28] MEDS ORDERED: normal saline 1000ML IV soln IV ONE (08:45)
[2022-09-28] MEDS ORDERED: morphine 4 MG/ML inj SYRINge IV ONE ×2 (08:45→11:30)
[2022-09-28] MEDS ORDERED: iohexol 300mg/ml 100ml inj. ONE (08:54)
[2022-09-28 09:29] LABS: BASOPHILS % (AUTO) 0.3 % (0-1); EOSINOPHILS # (AUTO) 0.1 X10'3 (0-0.9); EOSINOPHILS % (AUTO) 0.6 % (0-6); HEMATOCRIT 36.4 % (42.0-52.0); LYMPHOCYTES # (AUTO) 1.2 X10'3 (1.1-4.8); LYMPHOCYTES % (AUTO) 13.3 % (21-51); MEAN CORPUSCULAR HEMOGLOBIN 30.5 PG (27.0-31.0); MEAN CORPUSCULAR HGB CONC 32.8 g/dL (33.0-36.5); MEAN PLATELET VOLUME 7.7 FL (7.4-10.4); MONOCYTES # (AUTO) 0.9 X10'3 (0-0.9); MONOCYTES % (AUTO) 10.1 % (2-12); NEUTROPHILS # (AUTO) 6.8 X10'3 (1.8-7.7); NEUTROPHILS % (AUTO) 75.7 % (42-75); PLATELET COUNT 231 X10'3 (140-440); RED BLOOD COUNT 3.92 X10'6 (4.70-6.10); RED CELL DISTRIBUTION WIDTH 14.6 % (11.5-14.5)
[2022-09-28] MEDS ORDERED: LIDOCAINE 1%/EPI 1:100,000 inj. 10 ML multi-dose vial IJ ONE (09:40)
[2022-09-28] MEDS ORDERED: TETanus/Pertussis (Acell)/Diphther VAC/PF (Tdap-Adult) 0.5ml syringe IMVAC ONE (09:40)
[2022-09-28 11:29] LABS: ALANINE AMINOTRANSFERASE 24 U/L (12-78); ALBUMIN 3.1 G/DL (3.4-5.0); ALBUMIN/GLOBULIN RATIO 0.8 (1.1-1.5); ALKALINE PHOSPHATASE 73 IU/L (46-116); ANION GAP 10 (8-16); ASPARTATE AMINO TRANSFERASE 31 U/L (10-37); BILIRUBIN,TOTAL 0.4 MG/DL (0.1-1.0); BLOOD UREA NITROGEN 20 MG/DL (7-18); C-REACTIVE PROTEIN 6.21 MG/DL (0.0-0.5); CHLORIDE 104 MMOL/L (99-107); CREATININE 1.43 MG/DL (0.60-1.10); GLUCOSE 117 MG/DL (70-104); POTASSIUM 3.9 MMOL/L (3.5-5.1); SODIUM 138 MMOL/L (135-145); TOTAL CARBON DIOXIDE 23.8 MMOL/L (24-32); TOTAL PROTEIN 6.8 G/DL (6.4-8.2); eGFR 51 ML/MIN
[2022-09-28] MEDS ORDERED: ketorolac trometh. 30mg/ml inj. IV ONE (12:20)
--- NOTE | 2022-09-28 12:20 | NUR ---
new pain med order per ted
[2022-09-28 13:14] LABS: CLARITY,URINE SLIGHTLY CLOUDY (Clear); COLOR,URINE STRAW (Yellow); GLUCOSE, URINE NEGATIVE (Neg); KETONES,URINE NEGATIVE (Neg); LEUKOCYTE ESTERASE ,URINE NEGATIVE (Neg); NITRITES, URINE NEGATIVE (Neg); OCCULT BLOOD,URINE NEGATIVE (Neg); PROTEIN,URINE NEGATIVE (Neg); UROBILINOGEN,URINE 0.2 E.U/dL (0.2-1.0)
[2022-09-28 13:15] LABS: UA COLLECTION TYPE NON-SPECIFIED
[2022-09-28 13:25] LABS: BACTERIA,URINE FEW /HPF (Neg); MUCUS STRANDS NONE SEEN /LPF (Neg); RBC,URINE NONE SEEN /HPF (0-2); SQUAMOUS EPITHELIAL CELL,UR FEW /LPF (FEW); WBC,URINE 0-4 /HPF (0-4)
[2022-09-28 14:00] LABS: URINE AMPHETAMINE SCREEN POSITIVE (Neg); URINE BARBITUATE SCREEN NEGATIVE (Neg); URINE BENZODIAZEPINES SCREEN NEGATIVE (Neg); URINE CANNABINOID SCREEN NEGATIVE (Neg); URINE COCAINE SCREEN NEGATIVE (Neg); URINE METHADONE SCREEN NEGATIVE (Neg); URINE OPIATE SCREEN POSITIVE (Neg); URINE PHENCYCLIDINE SCREEN NEGATIVE (Neg)
[2022-09-28] MEDS ORDERED: magnesium Cl slow-release 64mg tablet PO PRN (14:40)
[2022-09-28] MEDS ORDERED: ondansetron 4mg rapidly disintigrating tab PO PRN (14:40)
[2022-09-28] MEDS ORDERED: magnesium hydroxide 30ml (MOM) UD suspension PO PRN (14:40)
[2022-09-28] MEDS ORDERED: mag hydrox/Alum hydrox/simeth 30ml oral suspension PO PRN (14:40)
[2022-09-28] MEDS ORDERED: magnesium 4gm in 100ml NS 100 ML IV PRN (14:40)
[2022-09-28] MEDS ORDERED: acetaminophen 325mg tablet PO PRN ×2 (14:40)
[2022-09-28] MEDS ORDERED: potassium Cl 20 mEq SR tablet PO PRN ×2 (14:40)
[2022-09-28] MEDS ORDERED: bisacodyl 10mg suppository rectal RC PRN (14:40)
[2022-09-28] MEDS ORDERED: ondansetron/PF 4mg/2ml inj IV PRN (14:40)
[2022-09-28] MEDS ORDERED: acetaminophen 650mg rectal suppository RC PRN (14:40)
[2022-09-28] MEDS ORDERED: potassium Cl 40MEQ/1/2NS 520ml 520 ML IV PRN (14:40)
[2022-09-28] MEDS ORDERED: ACET325T55 PO (15:13)
[2022-09-28] MEDS ORDERED: IBUP-1984 PO (15:13)
[2022-09-28] MEDS: normal saline 1000ml 1,000 ML IV SCH (15:16)
--- NOTE | 2022-09-28 18:24 | NUR ---
REPORT TO MATT MATAMOROS FOR CONTINUATION OF CARE.
[2022-09-28] MEDS ORDERED: temazepam 15mg capsule PO PRN (21:00)
[2022-09-28] MEDS: K and/or MAG REPLACEMENT MC SCH (21:25)
[2022-09-28] MEDS: heparin, porcine 5000 units/ml vial SQ SCH (21:25)
[2022-09-28] MEDS: docusate sod 100mg capsule PO SCH (22:01)
[2022-09-28] MEDS: HYDROcodone/acetaminophen 10/325mg tab PO PRN (22:08)
[2022-09-28] MEDS: vancomycin/NS 1 GM ADD-VANTAGE 250 ML IV SCH (23:50)
[2022-09-29] MEDS: normal saline 1000ml 1,000 ML IV SCH ×3 (00:40→21:07)
[2022-09-29 04:15] LABS: BASOPHILS % (AUTO) 0.5 % (0-1); EOSINOPHILS # (AUTO) 0.1 X10'3 (0-0.9); HEMATOCRIT 35.3 % (42.0-52.0); HEMOGLOBIN 11.6 g/dl (14.0-17.9); LYMPHOCYTES # (AUTO) 1.7 X10'3 (1.1-4.8); LYMPHOCYTES % (AUTO) 20.3 % (21-51); MEAN CORPUSCULAR HEMOGLOBIN 30.6 PG (27.0-31.0); MEAN CORPUSCULAR VOLUME 92.8 FL (78-98); MEAN PLATELET VOLUME 7.6 FL (7.4-10.4); MONOCYTES # (AUTO) 0.7 X10'3 (0-0.9); MONOCYTES % (AUTO) 8.6 % (2-12); NEUTROPHILS # (AUTO) 5.7 X10'3 (1.8-7.7); NEUTROPHILS % (AUTO) 69.6 % (42-75); PLATELET COUNT 211 X10'3 (140-440); RED CELL DISTRIBUTION WIDTH 14.4 % (11.5-14.5); WHITE BLOOD COUNT 8.2 X10'3 (4.5-11.0)
[2022-09-29 04:25] LABS: ALANINE AMINOTRANSFERASE 21 U/L (12-78); ALBUMIN 2.5 G/DL (3.4-5.0); ALBUMIN/GLOBULIN RATIO 0.8 (1.1-1.5); ALKALINE PHOSPHATASE 66 IU/L (46-116); ANION GAP 6 (8-16); ASPARTATE AMINO TRANSFERASE 25 U/L (10-37); BILIRUBIN,TOTAL 0.4 MG/DL (0.1-1.0); BLOOD UREA NITROGEN 14 MG/DL (7-18); BUN/CREATININE RATIO 13.9 (5.4-32.0); CALCIUM 7.9 MG/DL (8.5-10.1); CHLORIDE 108 MMOL/L (99-107); CREATININE 1.01 MG/DL (0.60-1.10); GLUCOSE 96 MG/DL (70-104); MAGNESIUM 1.8 MG/DL (1.5-2.4); POTASSIUM 4.1 MMOL/L (3.5-5.1); SODIUM 140 MMOL/L (135-145); TOTAL CARBON DIOXIDE 25.6 MMOL/L (24-32); TOTAL PROTEIN 5.7 G/DL (6.4-8.2); eGFR 76 ML/MIN
[2022-09-29] MEDS: K and/or MAG REPLACEMENT MC SCH ×2 (08:00→20:00)
[2022-09-29] MEDS: docusate sod 100mg capsule PO SCH ×2 (08:19→20:32)
[2022-09-29] MEDS: HYDROcodone/acetaminophen 10/325mg tab PO PRN (08:20)
[2022-09-29] MEDS: heparin, porcine 5000 units/ml vial SQ SCH ×2 (08:20→20:00)
[2022-09-29] MEDS: CefTRIAXone/D5W-Rocephin 1gm 50 ML IV SCH (08:21)
[2022-09-29] MEDS: vancomycin/NS 1 GM ADD-VANTAGE 250 ML IV SCH (11:00)
--- NOTE | 2022-09-29 19:30 | NUR ---
I agree with A Denilson Grigsby assessment.
--- NOTE | 2022-09-29 20:36 | NUR ---
ATTEMPTED TO ADMINISTER HERPARIN INJECTION. PT REFUSED STATING, "YOU GUYS TRIED TO GIVE ME THIS INJECTIONS THIS MORNING, AND I DO NOT WANT IT." I TRIED TO EDUCATE THE PT ABOUT THE MEDICATION, AND WHAT THIS MEANT IN REGARDS TO THEIR REFUSAL, AND THE PT STATED, "I HAVE A FEAR OF NEEDLES, AND I AM NOT WANTING TO HIT ANOTHER HOSPITAL STAFF MEMBER." MEDICATION WAS HELD PER PT REFUSAL, AND CHARGE NURSE WILL BE NOTIFIED.
[2022-09-29] MEDS: HYDROcodone/acetaminophen 5mg/325mg tablet PO PRN (22:18)
[2022-09-29] MEDS ORDERED: VANCOMYCIN LEVEL IV ONE (22:30)
--- NOTE | 2022-09-29 22:35 | NUR ---
LILO CH FOR PT (IV) GIVEN TO JUAN ESPINAL FOR ADMINISTRATION.
--- NOTE | 2022-09-29 23:04 | NUR ---
Awaiting vanco. IV administration: lab is pullling blood for vanco levels.
[2022-09-30] MEDS: vancomycin/NS 1 GM ADD-VANTAGE 250 ML IV SCH (00:19)
[2022-09-30] MEDS: HYDROcodone/acetaminophen 5mg/325mg tablet PO PRN ×2 (03:56→21:06)
[2022-09-30] MEDS: normal saline 1000ml 1,000 ML IV SCH ×3 (07:02→21:04)
[2022-09-30 07:20] LABS: BASOPHILS % (AUTO) 0.5 % (0-1); EOSINOPHILS # (AUTO) 0.1 X10'3 (0-0.9); EOSINOPHILS % (AUTO) 1.2 % (0-6); HEMATOCRIT 35.5 % (42.0-52.0); HEMOGLOBIN 11.9 g/dl (14.0-17.9); LYMPHOCYTES # (AUTO) 1.6 X10'3 (1.1-4.8); LYMPHOCYTES % (AUTO) 23.5 % (21-51); MEAN CORPUSCULAR HEMOGLOBIN 30.6 PG (27.0-31.0); MEAN CORPUSCULAR HGB CONC 33.6 g/dL (33.0-36.5); MEAN CORPUSCULAR VOLUME 91.1 FL (78-98); MEAN PLATELET VOLUME 7.4 FL (7.4-10.4); MONOCYTES # (AUTO) 0.6 X10'3 (0-0.9); MONOCYTES % (AUTO) 8.8 % (2-12); NEUTROPHILS # (AUTO) 4.4 X10'3 (1.8-7.7); PLATELET COUNT 234 X10'3 (140-440); RED CELL DISTRIBUTION WIDTH 13.9 % (11.5-14.5); WHITE BLOOD COUNT 6.7 X10'3 (4.5-11.0)
[2022-09-30] MEDS: K and/or MAG REPLACEMENT MC SCH ×2 (08:00→20:00)
[2022-09-30] MEDS: CefTRIAXone/D5W-Rocephin 1gm 50 ML IV SCH (08:01)
[2022-09-30] MEDS: heparin, porcine 5000 units/ml vial SQ SCH ×2 (08:01→21:06)
[2022-09-30] MEDS: docusate sod 100mg capsule PO SCH ×2 (08:01→21:07)
[2022-09-30 08:03] LABS: ALANINE AMINOTRANSFERASE 16 U/L (12-78); ALBUMIN 2.6 G/DL (3.4-5.0); ALBUMIN/GLOBULIN RATIO 0.8 (1.1-1.5); ALKALINE PHOSPHATASE 67 IU/L (46-116); ANION GAP 7 (8-16); ASPARTATE AMINO TRANSFERASE 21 U/L (10-37); BILIRUBIN,TOTAL 0.5 MG/DL (0.1-1.0); BLOOD UREA NITROGEN 11 MG/DL (7-18); BUN/CREATININE RATIO 11.7 (5.4-32.0); CALCIUM 8.7 MG/DL (8.5-10.1); CHLORIDE 105 MMOL/L (99-107); CREATININE 0.94 MG/DL (0.60-1.10); GLUCOSE 92 MG/DL (70-104); MAGNESIUM 1.6 MG/DL (1.5-2.4); POTASSIUM 3.9 MMOL/L (3.5-5.1); SODIUM 139 MMOL/L (135-145); TOTAL CARBON DIOXIDE 27.2 MMOL/L (24-32); eGFR 82 ML/MIN
[2022-09-30] MEDS: VANCOmycin 1250MG/NS 250ml Bag 250 ML IV SCH ×2 (10:25→21:04)
[2022-09-30 18:00] VITALS: BP 145/79
[2022-09-30 22:00] VITALS: BP 143/78
[2022-10-01 07:00] VITALS: BP 113/68
[2022-10-01] MEDS: K and/or MAG REPLACEMENT MC SCH ×2 (08:00→19:58)
[2022-10-01] MEDS: docusate sod 100mg capsule PO SCH ×2 (08:55→20:00)
[2022-10-01] MEDS: CefTRIAXone/D5W-Rocephin 1gm 50 ML IV SCH (08:55)
[2022-10-01] MEDS: heparin, porcine 5000 units/ml vial SQ SCH ×2 (08:55→20:00)
[2022-10-01] MEDS: normal saline 1000ml 1,000 ML IV SCH ×2 (08:56→23:04)
[2022-10-01 10:00] VITALS: BP 141/86
[2022-10-01] MEDS: VANCOmycin 1250MG/NS 250ml Bag 250 ML IV SCH ×2 (12:22→23:04)
[2022-10-01 18:00] VITALS: BP 129/66
--- NOTE | 2022-10-01 18:26 | NUR ---
Problems reprioritized. Patient report given, questions answered & plan of care reviewed with IVY MARTINEZ.
[2022-10-01 22:00] VITALS: BP 115/64
[2022-10-01] MEDS: HYDROcodone/acetaminophen 10/325mg tab PO PRN (22:01)
[2022-10-01 22:07] LABS: BASOPHILS % (AUTO) 0.7 % (0-1); EOSINOPHILS # (AUTO) 0.1 X10'3 (0-0.9); EOSINOPHILS % (AUTO) 2.1 % (0-6); HEMATOCRIT 37.8 % (42.0-52.0); HEMOGLOBIN 12.7 g/dl (14.0-17.9); LYMPHOCYTES # (AUTO) 1.9 X10'3 (1.1-4.8); LYMPHOCYTES % (AUTO) 32.1 % (21-51); MEAN CORPUSCULAR HEMOGLOBIN 31.1 PG (27.0-31.0); MEAN CORPUSCULAR HGB CONC 33.7 g/dL (33.0-36.5); MEAN CORPUSCULAR VOLUME 92.3 FL (78-98); MEAN PLATELET VOLUME 7.5 FL (7.4-10.4); MONOCYTES # (AUTO) 0.7 X10'3 (0-0.9); MONOCYTES % (AUTO) 12.5 % (2-12); NEUTROPHILS # (AUTO) 3.1 X10'3 (1.8-7.7); NEUTROPHILS % (AUTO) 52.6 % (42-75); PLATELET COUNT 272 X10'3 (140-440); RED BLOOD COUNT 4.09 X10'6 (4.70-6.10); RED CELL DISTRIBUTION WIDTH 13.9 % (11.5-14.5); WHITE BLOOD COUNT 5.9 X10'3 (4.5-11.0)
[2022-10-01 22:15] LABS: ALANINE AMINOTRANSFERASE 21 U/L (12-78); ALBUMIN 2.8 G/DL (3.4-5.0); ALBUMIN/GLOBULIN RATIO 0.8 (1.1-1.5); ALKALINE PHOSPHATASE 72 IU/L (46-116); ANION GAP 9 (8-16); ASPARTATE AMINO TRANSFERASE 17 U/L (10-37); BILIRUBIN,TOTAL 0.2 MG/DL (0.1-1.0); BLOOD UREA NITROGEN 16 MG/DL (7-18); CALCIUM 8.6 MG/DL (8.5-10.1); CHLORIDE 107 MMOL/L (99-107); CREATININE 0.89 MG/DL (0.60-1.10); GLUCOSE 109 MG/DL (70-104); MAGNESIUM 1.8 MG/DL (1.5-2.4); SODIUM 142 MMOL/L (135-145); TOTAL CARBON DIOXIDE 26.2 MMOL/L (24-32); TOTAL PROTEIN 6.5 G/DL (6.4-8.2); VANCOMYCIN,TROUGH 18.8 UG/ML (6.0-14.0); eGFR 88 ML/MIN
[2022-10-01] MEDS ORDERED: VANCOMYCIN LEVEL IV ONE (22:30)
[2022-10-02] VITALS (18 sets, daily range): BP systolic 119–163; BP diastolic 64–102
[2022-10-02 04:23] LABS: ALANINE AMINOTRANSFERASE 17 U/L (12-78); ALBUMIN 2.7 G/DL (3.4-5.0); ALBUMIN/GLOBULIN RATIO 0.8 (1.1-1.5); ALKALINE PHOSPHATASE 65 IU/L (46-116); ANION GAP 7 (8-16); ASPARTATE AMINO TRANSFERASE 21 U/L (10-37); BILIRUBIN,TOTAL 0.2 MG/DL (0.1-1.0); BLOOD UREA NITROGEN 19 MG/DL (7-18); BUN/CREATININE RATIO 21.6 (5.4-32.0); CALCIUM 8.3 MG/DL (8.5-10.1); CHLORIDE 107 MMOL/L (99-107); CREATININE 0.88 MG/DL (0.60-1.10); GLUCOSE 95 MG/DL (70-104); MAGNESIUM 1.7 MG/DL (1.5-2.4); POTASSIUM 3.9 MMOL/L (3.5-5.1); SODIUM 140 MMOL/L (135-145); TOTAL CARBON DIOXIDE 26.3 MMOL/L (24-32); TOTAL PROTEIN 6.2 G/DL (6.4-8.2); eGFR 89 ML/MIN
[2022-10-02 04:26] LABS: BASOPHILS % (AUTO) 0.3 % (0-1); EOSINOPHILS # (AUTO) 0.1 X10'3 (0-0.9); EOSINOPHILS % (AUTO) 1.9 % (0-6); HEMATOCRIT 37.2 % (42.0-52.0); HEMOGLOBIN 12.7 g/dl (14.0-17.9); LYMPHOCYTES # (AUTO) 1.9 X10'3 (1.1-4.8); LYMPHOCYTES % (AUTO) 35.1 % (21-51); MEAN CORPUSCULAR HEMOGLOBIN 31.2 PG (27.0-31.0); MEAN CORPUSCULAR VOLUME 91.6 FL (78-98); MEAN PLATELET VOLUME 7.7 FL (7.4-10.4); MONOCYTES # (AUTO) 0.7 X10'3 (0-0.9); MONOCYTES % (AUTO) 12.7 % (2-12); NEUTROPHILS # (AUTO) 2.7 X10'3 (1.8-7.7); PLATELET COUNT 268 X10'3 (140-440); RED BLOOD COUNT 4.07 X10'6 (4.70-6.10); RED CELL DISTRIBUTION WIDTH 14.1 % (11.5-14.5); WHITE BLOOD COUNT 5.4 X10'3 (4.5-11.0)
--- NOTE | 2022-10-02 06:37 | NUR ---
Problems reprioritized. Patient report given, questions answered & plan of care reviewed with TATE MARTINEZ. Addendum: 10/02/22 at 0637 by Yudi Galvan RN Amended: Links added.
[2022-10-02] MEDS: K and/or MAG REPLACEMENT MC SCH ×2 (08:00→21:13)
[2022-10-02] MEDS: docusate sod 100mg capsule PO SCH ×2 (08:29→20:00)
[2022-10-02] MEDS: heparin, porcine 5000 units/ml vial SQ SCH ×2 (08:29→21:15)
[2022-10-02] MEDS: CefTRIAXone/D5W-Rocephin 1gm 50 ML IV SCH (08:29)
[2022-10-02] MEDS: normal saline 1000ml 1,000 ML IV SCH ×2 (08:40→21:14)
[2022-10-02] MEDS: VANCOmycin 1250MG/NS 250ml Bag 250 ML IV SCH ×2 (10:32→23:01)
[2022-10-02] MEDS ORDERED: vancomycin 1,000mg inj ONE (12:11)
[2022-10-02] MEDS ORDERED: ondansetron/PF 4mg/2ml inj IV PRN (12:30)
[2022-10-02] MEDS ORDERED: morphine 4 MG/ML inj SYRINge IV PRN (12:30)
[2022-10-02] MEDS ORDERED: meperidine/PF 25mg/ml syringe IV PRN ×3 (12:30)
[2022-10-02] MEDS ORDERED: FENTANYL CITRATE/PF 50 MCG/1 ML VIAL ONE (12:30)
[2022-10-02] MEDS ORDERED: proCHLORperazine 10 MG/2 ml inj IV PRN (12:30)
[2022-10-02] MEDS ORDERED: ringers solution, lacted 1,000 ML IV SCH (12:30)
[2022-10-02] MEDS ORDERED: morphine 2 MG/ML inj. syringe IV PRN (12:30)
[2022-10-02] MEDS ORDERED: midazolam 1 mg/ML 2ml injection ONE (12:30)
[2022-10-02] MEDS ORDERED: propofol inj 20 ML IV ONE (12:31)
--- NOTE | 2022-10-02 13:05 | NUR ---
Received from OR via [facility] , accompanied by Anesthesiologist DR ROBLERO and report given by Anesthesiolgist. PT PLACED ON O2 AND MONITOR, S/P I AND D LEFT FOREARM, GENERAL ANESTHESIA, AROUSES EASILY, LEFT ARM BLANKA WRAP DDRESSING CDI, GOOD RADIAL PULSES BILAT, STATES IS AT A 2, DENIES ANY NAUSEA, WILL CONT TO ASSESS.
--- NOTE | 2022-10-02 14:05 | NUR ---
Report called to receiving nurse. Transferred via [facility] B[facility] TO ROOM 353 Belongings . Special Issues communicated to receiving nurse. PT IS A LITTLE TEARFUL WANTING TO GO HOME. HE SAID HE WOULD WANT TO TAKE ORAL ANTIBIOTICS.
[2022-10-02] MEDS: HYDROcodone/acetaminophen 10/325mg tab PO PRN ×2 (16:55→21:15)
--- NOTE | 2022-10-02 18:21 | NUR ---
Problems reprioritized. Patient report given, questions answered & plan of care reviewed with charbel ferrell.
[2022-10-03] MEDS: HYDROcodone/acetaminophen 10/325mg tab PO PRN (02:14)
[2022-10-03] MEDS: normal saline 1000ml 1,000 ML IV SCH (03:45)
[2022-10-03 05:52] LABS: BASOPHILS % (AUTO) 0.7 % (0-1); EOSINOPHILS # (AUTO) 0.1 X10'3 (0-0.9); EOSINOPHILS % (AUTO) 1.6 % (0-6); HEMATOCRIT 36.4 % (42.0-52.0); HEMOGLOBIN 12.3 g/dl (14.0-17.9); LYMPHOCYTES # (AUTO) 1.8 X10'3 (1.1-4.8); LYMPHOCYTES % (AUTO) 29.7 % (21-51); MEAN CORPUSCULAR HEMOGLOBIN 30.9 PG (27.0-31.0); MEAN CORPUSCULAR HGB CONC 33.7 g/dL (33.0-36.5); MEAN CORPUSCULAR VOLUME 91.7 FL (78-98); MEAN PLATELET VOLUME 7.5 FL (7.4-10.4); MONOCYTES # (AUTO) 0.6 X10'3 (0-0.9); MONOCYTES % (AUTO) 9.7 % (2-12); NEUTROPHILS # (AUTO) 3.5 X10'3 (1.8-7.7); NEUTROPHILS % (AUTO) 58.3 % (42-75); PLATELET COUNT 260 X10'3 (140-440); RED BLOOD COUNT 3.97 X10'6 (4.70-6.10); RED CELL DISTRIBUTION WIDTH 13.9 % (11.5-14.5)
[2022-10-03 06:11] LABS: ALANINE AMINOTRANSFERASE 23 U/L (12-78); ALBUMIN 2.8 G/DL (3.4-5.0); ALBUMIN/GLOBULIN RATIO 0.8 (1.1-1.5); ALKALINE PHOSPHATASE 63 IU/L (46-116); ANION GAP 8 (8-16); ASPARTATE AMINO TRANSFERASE 23 U/L (10-37); BILIRUBIN,TOTAL 0.3 MG/DL (0.1-1.0); BLOOD UREA NITROGEN 18 MG/DL (7-18); BUN/CREATININE RATIO 17.8 (5.4-32.0); CALCIUM 8.5 MG/DL (8.5-10.1); CHLORIDE 106 MMOL/L (99-107); CREATININE 1.01 MG/DL (0.60-1.10); GLUCOSE 90 MG/DL (70-104); POTASSIUM 3.8 MMOL/L (3.5-5.1); SODIUM 140 MMOL/L (135-145); TOTAL CARBON DIOXIDE 26.3 MMOL/L (24-32); TOTAL PROTEIN 6.2 G/DL (6.4-8.2); eGFR 76 ML/MIN
--- NOTE | 2022-10-03 06:21 | NUR ---
reported to days. notes written in daily rounding. pt anxious to go home. labs drawn w/o difficulty.
--- NOTE | 2022-10-03 06:34 | NUR ---
Patient in room [facility] 353. I have received report from lew ferrell and had the opportunity to ask questions and assume patient care.
[2022-10-03] MEDS: K and/or MAG REPLACEMENT MC SCH (06:38)
[2022-10-03] MEDS ORDERED: DOXY100C77 PO (07:58)
[2022-10-03] MEDS: heparin, porcine 5000 units/ml vial SQ SCH (08:00)
[2022-10-03] MEDS: docusate sod 100mg capsule PO SCH (08:00)
[2022-10-03] MEDS: CefTRIAXone/D5W-Rocephin 1gm 50 ML IV SCH (08:29)
--- NOTE | 2022-10-03 09:32 | NUR ---
PT DISCHARGED IN STABLE CONDITION. LEFT FACILITY WITH GF IN PRIVATE VEHICLE. IV DC CANULA INTACT. ALL BELONGINGS IN HAND. FOLLOW UP INSTRUCTIONS GIVEN, PT RESISTANT TO EDUCATION. PT AWARE HE NEEDS TO FU WITH DR BARRIOS, INSTRUCTED TO CALL HIS OFFICE TOMORROW. PT ALSO AWARE HE NEEDS TO FU WITH PCP. MORNING DOSE OF ABX GIVEN, PT REFUSED TO STAY FOR MD DIMA AWARE. PT AWARE HE WILL NOT BE ABLE TO PHOTOTYPESETTING EQUIPMENT MONITOR PO ABX UNTIL TOMORROW D/T HOLIDAY TODAY. PT VERBALLY UPSET THAT WE WANTED HIM TO STAY FOR IV ABX BEFORE HE LEFT. PT VERBALLY YELLED AT ME THAT HE WANTED TO LEAVE, HE REFUSED WOUND PICS, HE REFUSED VITALS, AND MEDS. ONLY AGREED TO STAY FOR 30 MORE MINS FOR ROCEPHIN. PACKING WAS DCs BY AND NEW DSG APPLIED BY . WOUND CARE SUPPLIES SENT HOME WITH PT. Addendum: 10/03/22 at 0938 by Geri Sabillon RN Amended: Links added.
== END 2022-10-03 09:31 | disposition home or self-care (01) | DRG 383 ==
LOC: ER 07:11 → ED HOLD 14:44 → EDBEDREQ 21:20 → SUR 3N 09-30 14:44
PROVIDERS: ADMIT Family Medicine; ATTEND Family Medicine
DX: L02.414 Cutaneous abscess of left upper limb (principal); N17.0 Acute kidney failure with tubular necrosis; S52.209A Unspecified fracture of shaft of unspecified ulna, initial encounter for closed fracture; D64.9 Anemia, unspecified; F12.90 Cannabis use, unspecified, uncomplicated; F17.200 Nicotine dependence, unspecified, uncomplicated; L03.114 Cellulitis of left upper limb; G89.29 Other chronic pain; W18.39XA Other fall on same level, initial encounter; Z20.822 Contact with and (suspected) exposure to COVID-19; Z86.14 Personal history of Methicillin resistant Staphylococcus aureus infection; Z79.899 Other long term (current) drug therapy; Z88.2 Allergy status to sulfonamides; Z88.1 Allergy status to other antibiotic agents; Y93.89 Activity, other specified; Y92.89 Other specified places as the place of occurrence of the external cause; Y99.8 Other external cause status
CPT/HCPCS: 36415; 73090; 73201; 80053; 80202; 80305; 81001; 82948; 83605; 83735; 84145; 85025; 85651; 86140; 87040; 87070; 87075; 87077; 87081; 87102; 87186; 87811; 90715; 93005; 99285; A4615; A4618; A4649; A6196; A6209; A6258; A6446; A6449; A7000; G0378; J0696; J1644; J1885; J2175; J2250; J2270; J2405; J2704; J3010; J3370; J3490; J7030; J7040; J7120; Q9967

== ENCOUNTER 2022-10-30 15:17 | Emergency (ER) | payer MEDICAID ==
[~2022-10-30] VITALS: Ht 180.3 cm; Wt 70.0 kg
[~2022-10-30 15:17] MED LIST changes: +ACET325T55 PO; -AMOX500C4 PO; -CLIN150C8 PO; +IBUP-1984 PO; -IBUP-1986 PO; -ONDA-104 PO; -ONDA4TAB6 PO
[2022-10-30 15:21] VITALS: BP 119/74
[2022-10-30] MEDS ORDERED: colchicine 0.6mg tablet PO ONE (16:50)
[2022-10-30] MEDS ORDERED: naproxen 500mg tablet PO ONE (16:50)
[2022-10-30] MEDS ORDERED: NAPR-56 PO (17:51)
== END 2022-10-30 18:07 | disposition home or self-care (01) ==
LOC: ER 15:18
DX: M10.9 Gout, unspecified (principal); F12.90 Cannabis use, unspecified, uncomplicated; Z88.2 Allergy status to sulfonamides
CPT/HCPCS: 36415; 73660; 84550; 99284

== ENCOUNTER 2023-04-05 00:31 | Emergency (ER) | payer MEDICAID ==
[~2023-04-05] VITALS: Ht 177.8 cm; Wt 72.7 kg
[2023-04-05] MEDS ORDERED: DOXYCYCLINE 100MG CAPSULE PO STA (01:43)
[2023-04-05] MEDS ORDERED: cephalexin 500mg capsule PO ONE (01:45)
[2023-04-05] MEDS ORDERED: DOXY-1 PO (01:46)
[2023-04-05] MEDS ORDERED: CEPH-585 PO (01:46)
[2023-04-05] MEDS ORDERED: ketorolac trometh inj. 60 MG/2 ML VIAL IM ONE (01:50)
[2023-04-05 02:25] VITALS: BP 108/60
== END 2023-04-05 02:31 | disposition home or self-care (01) ==
LOC: ER 00:32
DX: L02.416 Cutaneous abscess of left lower limb (principal); F17.200 Nicotine dependence, unspecified, uncomplicated; F12.90 Cannabis use, unspecified, uncomplicated; Z72.89 Other problems related to lifestyle; Z86.14 Personal history of Methicillin resistant Staphylococcus aureus infection; Z87.442 Personal history of urinary calculi; Z98.890 Other specified postprocedural states; Z88.2 Allergy status to sulfonamides; Z88.8 Allergy status to other drugs, medicaments and biological substances; Z79.899 Other long term (current) drug therapy
CPT/HCPCS: 96372; 99283; J1885; A6446

== ENCOUNTER 2023-09-29 16:21 | Emergency (ER) | payer MEDICAID ==
[~2023-09-29] VITALS: Ht 177.8 cm; Wt 77.2 kg
[~2023-09-29 16:21] MED LIST changes: +CEPH-585 PO
[2023-09-29 16:24] VITALS: BP 127/86; PULSE 91; RESP 16; TEMP 98.7; O2SAT 99
[2023-09-30] MEDS ORDERED: CEPH-585 PO (09:24)
[2023-09-30] MEDS ORDERED: SULF1TAB49 PO (09:24)
== END 2023-09-29 20:41 | disposition left against medical advice (07) ==
LOC: ER 16:21
DX: M79.89 Other specified soft tissue disorders (principal); Z53.21 Procedure and treatment not carried out due to patient leaving prior to being seen by health care provider
CPT/HCPCS: 99281

== ENCOUNTER 2024-01-16 23:04 | Emergency (ER) | payer MEDICAID ==
[~2024-01-16] VITALS: Ht 177.8 cm; Wt 70.5 kg
[2024-01-16 23:12] VITALS: TEMP 98.1
[2024-01-17 02:29] VITALS: RESP 18
[2024-01-17] MEDS ORDERED: IBUP-1984 PO (03:49)
[2024-01-17] MEDS ORDERED: HYDR-3965 PO (03:49)
[2024-01-17] MEDS ORDERED: LIDO700A32 TOP (03:49)
[2024-01-17] MEDS: acetaminophen 325mg tablet PO ONE (04:13)
[2024-01-17] MEDS: ketorolac trometh. 30mg/ml inj. IM ONE (04:14)
[2024-01-17] MEDS: LIDOcaine 5% patch TP ONE (04:14)
[2024-01-17 04:25] VITALS: BP 120/80; PULSE 72; O2SAT 98
== END 2024-01-17 04:26 | disposition home or self-care (01) ==
LOC: ER 23:05
DX: R07.81 Pleurodynia (principal); F12.90 Cannabis use, unspecified, uncomplicated; Z79.2 Long term (current) use of antibiotics; Z79.1 Long term (current) use of non-steroidal anti-inflammatories (NSAID)
CPT/HCPCS: 71100; 96372; 99283; J1885

== ENCOUNTER 2025-02-11 13:43 | Emergency (ER) | payer MEDICAID ==
[~2025-02-11] VITALS: Ht 177.8 cm; Wt 69.5 kg
[~2025-02-11 13:43] MED LIST changes: -CEPH-585 PO; +LIDO700A32 TOP
[2025-02-11 13:50] VITALS: BP 100/62; PULSE 63; RESP 16; O2SAT 99
--- NOTE | 2025-02-11 13:52 | Physician Documentation ---
History of Present Illness ~ Stated Complaint: HAND LAC Time Seen by MD: 13:49 Primary Medical Doctor: NONE HPI Patient is seen today with complaints of a laceration to the dorsum of his right hand just prior to arrival from hitting it accidentally with an Axe. Patient denies any focal motor deficits. Patient denies any active bleeding. He has no other concern or complaint at this time. Tetanus Within 5 Years: Yes (2021) Medication Reconciliation Allergies: Coded Allergies: No Known Allergies (Unverified , 01/16/24) Scheduled Lidocaine (Lidoderm), 1 PATCH TOP DAILY Scheduled PRN Acetaminophen (Acetaminophen), 1 TAB PO Q4HPRN PRN for pain or fever, (Reported) Ibuprofen* (Motrin*), 200 MG PO Q6H PRN PRN for pain, (Reported) Past Medical History Past Medical History: Kidney Stones, MRSA Abscess Past Surgical History: abdominal surgery, orthopedic surgeries Other Past Surgical History: I&D of abscess Patient History: Patient reports no known family medical history. Alcohol Use: Heavy Drug Use: marijuana Lives In: Home Review of Systems Constitutional: Denies: chills, fever, weakness Eyes: Denies: pain, blurred vision ENT: Denies: ear pain, nose pain, throat pain, mouth pain Respiratory: Denies: cough, shortness of breath Cardiovascular: Denies: chest pain, palpitations Gastrointestinal: Denies: abdominal pain, nausea, vomiting Genitourinary: Denies: burning, dysuria Male Genitalia: Denies: penile discharge, testicular pain Neurological: Denies: headache, dizziness Musculoskeletal: Denies: pain, swelling Integumentary: Denies: rash, lesions Allergic/Immunologic: Denies: hives, itching Hematologic/Lymphatic: Denies: no symptoms reported Psychiatric: Denies: depression, anxiety Procedures Laceration/Wound Repair Laceration : Procedure Note Procedure note: In the ED today patient has 4 cm laceration on dorsum of right hand was anesthetized using 8 cc of 1% lidocaine with epinephrine. Patient tolerated well. Running suture was used to achieve closure which patient tolerated well. Adhesive bandage with nonstick dressing applied to right hand. Progress Results/Orders Results/Orders Orders - ISAAC LARES Hand, Complete (3vw Min) (02/11/25 13:50) Completed Orders - LARES,ISAAC R PAC Lidocaine 1% W/Epi 1:100,000 (Xylocaine (02/11/25 13:50) Hand, Complete (3vw Min) (02/11/25 13:50) Vital Signs 02/11/25 13:50 Temp 98.0 Pulse 63 Resp 16 B/P (MAP) 100/62 Pulse Ox 99 O2 Flow Rate 0 EKG/XRAY/CT/US/VASC/MRI Bone/Soft Tissue X-Ray (Ext.) : Additional Comment X-ray of right hand shows no sign of acute fracture, no dislocation, chronic fracture of 5th metacarpal shaft, no osteolytic or blastic lesions, bones otherwise in anatomic alignment. DIAGNOSTIC RADIOLOGY Patient: MEENA MAGALLON Medical Record: [id number] [facility] : 1965, Age: 59 Sex: Male Location: ER Patient Status: [facility] ER Service Date/Time: 02/11/25/ 1350 Ordering Physician: ISAAC LARES PAC Exam: HAND, COMPLETE (3VW MIN) CLINICAL INDICATION: Trauma TECHNIQUE: 3 radiographic views of the right hand were obtained. Comparison: None FINDINGS/IMPRESSION: There is no evidence of acute fracture or dislocation. Chronic fracture of the 5th metacarpal shaft. Electronically Signed by:JUSTIN SALCEDO MD Date & Time: 02/11/25 1414 Dictated by: JUSTIN SALCEDO MD Dictation date and time: 02/11/25 1355 Primary Care Provider: NO PRIMARY CARE PROVIDER cc: ISAAC LARES PAC ~ Medical Decision Making Findings Patient is seen today with complaints of a 6 cm laceration to the dorsum of his right hand just prior to arrival from hitting it accidentally with an Axe. Patient denies any focal motor deficits. Patient denies any active bleeding. He has no other concern or complaint at this time. Patient tolerated suturing of laceration to right hand well. Patient will keep hand clean and dry for three days after which he may wash with clean soap and water. Return for suture removal in 7-10 days for re-evaluation and suture r emoval. X-ray of right hand was unremarkable. Departure Disposition: 01 HOME / SELF CARE / HOMELESS Impression: Primary Impression: Laceration Condition: Improved Discharge Instructions: Laceration Care, Adult, [id number] Additional Instructions: Patient tolerated suturing of laceration to right hand well. Patient will keep hand clean and dry for three days after which he may wash with clean soap and water. Return for suture removal in 7-10 days for re-evaluation and suture removal. X-ray of right hand was unremarkable. Referrals: NO PRIMARY CARE PROVIDER (PCP) Signature Scribe Signature: No scribe Attestation: No scribe ISAAC LARES PAC February 11, 2025 13:52
[2025-02-11] MEDS: LIDOcaine 1% W/epiNEPHrine 1:100,000 20ml vial SQ STA (14:03)
--- NOTE | 2025-02-11 14:16 | RADIOLOGY REPORT ---
CLINICAL INDICATION: Trauma TECHNIQUE: 3 radiographic views of the right hand were obtained. Comparison: None FINDINGS/IMPRESSION: There is no evidence of acute fracture or dislocation. Chronic fracture of the 5th metacarpal shaft.
[2025-02-11 16:07] VITALS: TEMP 98
== END 2025-02-11 16:06 | disposition home or self-care (01) ==
LOC: ER 13:43
DX: S61.411A Laceration without foreign body of right hand, initial encounter (principal); Z87.440 Personal history of urinary (tract) infections; F12.90 Cannabis use, unspecified, uncomplicated; F10.90 Alcohol use, unspecified, uncomplicated; W22.8XXA Striking against or struck by other objects, initial encounter; Y93.89 Activity, other specified; Y92.89 Other specified places as the place of occurrence of the external cause; Y99.8 Other external cause status; Y90.9 Presence of alcohol in blood, level not specified
CPT/HCPCS: 12002; 73130; 99283; J7030; 99282; A6258; A6449

== ENCOUNTER 2025-02-19 12:59 | Emergency (ER) | payer MEDICAID ==
[~2025-02-19] VITALS: Ht 180.3 cm; Wt 70.2 kg
[2025-02-19 13:04] VITALS: BP 115/72; PULSE 73; RESP 18; TEMP 98.3; O2SAT 95
--- NOTE | 2025-02-19 13:21 | Physician Documentation ---
History of Present Illness ~ Chief Complaint: Suture Removal Stated Complaint: HAND INFECTION Time Seen by MD: 13:11 Primary Medical Doctor: NONE HPI Patient returns to the ED to have his sutures removed in his right posterior aspect of his hand. Patient acknowledges that he worked outside with the healing laceration and fortunately got it is soiled which has developed increase d pain and swelling and redness in the surrounding tissue along with minor drainage. Denies any fevers nausea vomiting Placed On: February 19, 2025 Tetanus Within 5 Years: Yes (2021) Medication Reconciliation Allergies: Coded Allergies: No Known Allergies (Unverified , 02/19/25) Scheduled Cephalexin*Monohydrate* (Keflex*), 1 CAP PO QID Lidocaine (Lidoderm), 1 PATCH TOP DAILY Sulfamethoxazole/Trimethoprim (Septra Ds Tab), 1 TAB PO Q12H Scheduled PRN Acetaminophen (Acetaminophen), 1 TAB PO Q4HPRN PRN for pain or fever, (Reported) Ibuprofen* (Motrin*), 200 MG PO Q6H PRN PRN for pain, (Reported) Past Medical History Past Medical History: Kidney Stones, MRSA Abscess Past Surgical History: abdominal surgery, orthopedic surgeries Other Past Surgical History: I&D of abscess Patient History: Patient reports no known family medical history. Alcohol Use: Heavy Drug Use: marijuana Lives In: Home Review of Systems All Other Systems at this time: Reviewed and Negative ROS As stated above in the HPI, otherwise all systems are reviewed and negative. Physical Exam Vital Signs: Temperature: 98.3, Source: Temporal, Heart Rate: 73, Respiratory Rate: 18, BP: 115/72, Pulse Oximetry: 95, Weight: 70.150 Physical Exam General: Alert, no apparent distress. HEENT: PERRL, EOMI, no injection, moist mucous membranes. Extremities: Normal range of motion, no deformity. Erythema minor drainage and a 3-1/2 cm laceration that is mostly well approximated Neurologic: Oriented x4. Psychiatric: Normal mood and affect. Skin: Normal color, warm and dry. No edema, no ecchymosis. Progress Results/Orders Results/Orders Orders - AVINASH TORIBIO BATTERY CHARGER TESTER General Nursing Order (02/19/25 ) Completed Orders - AVINASH TORIBIO BATTERY CHARGER TESTER Lidocaine/Epi/Tetracaine Top (Lidocaine/ (02/19/25 13:15) Medications Received in ER Medications (Trade) Dose Ordered Sig/Arsalan Route PRN Reason Start Time Stop Time Status Last Admin Dose Admin (LIDOcaine/ epiNEPH/ tetracaine top pete 3ml SYR) 5 ml ONCE ONCE TOP 02/19/25 13:15 02/19/25 13:17 DC 02/19/25 13:22 5 ML Vital Signs 02/19/25 13:04 Temp 98.3 Pulse 73 Resp 18 B/P (MAP) 115/72 Pulse Ox 95 Medical Decision Making Findings Sutures were removed without difficulty after using let topically. I am concerned that the patient is noncompliant with keeping the area clean and dry. I am going to place him on antibiotics because I believe he will fail outpatient therapy otherwise. Differential Dx:Considerations: Include: Cellulitis, Suture removal, Wound dehiscence, Other Departure Disposition: 01 HOME / SELF CARE / HOMELESS Impression: Primary Impression: Wound Additional Impression: Laceration Condition: Stable Discharge Instructions: Suture Removal, Care After Additional Instructions: Your sutures were removed ,however because you did not keep the area clean and dry have developed a minor skin infection take the antibiotics as prescribed follow up for any worsening symptoms Referrals: NO PRIMARY CARE PROVIDER (PCP) Prescriptions Sulfamethoxazole/Trimethoprim (Septra Ds Tab) 800 Mg/160 Mg Tablet 1 TAB PO Q12H for 10 Days, #20 TAB Prov: AVINASH TORIBIO NP 02/19/25 Cephalexin*Monohydrate* (Keflex*) 500 Mg Capsule 1 CAP PO QID, #40 CAP Prov: AVINASH TORIBIO BATTERY CHARGER TESTER 02/19/25 Education Educated: Patient Educated regarding: diagnosis Signature Scribe Signature: g Attestation: The note accurately reflects work and decisions made by me.Avinash Cardozo NP 02/19/25 16:28 AVINASH TORIBIO NP February 19, 2025 13:21
[2025-02-19] MEDS: LIDOcaine/epinephrine/tetracaine TOPICAL sol 3 ML syringe TOP ONE (13:22)
[2025-02-19] MEDS ORDERED: CEPH-585 PO (13:43)
[2025-02-19] MEDS ORDERED: SULF1TAB45 PO (13:43)
== END 2025-02-19 13:58 | disposition home or self-care (01) ==
LOC: ER 12:59
DX: S61.411D Laceration without foreign body of right hand, subsequent encounter (principal); F12.90 Cannabis use, unspecified, uncomplicated; Z87.440 Personal history of urinary (tract) infections; X58.XXXD Exposure to other specified factors, subsequent encounter
CPT/HCPCS: 99283; J3490; A6449

== ENCOUNTER 2025-05-09 23:01 | Emergency (ER) | payer MEDICAID ==
[~2025-05-09] VITALS: Ht 177.8 cm; Wt 72.5 kg
[~2025-05-09 23:01] MED LIST changes: +CEPH-585 PO; +LIDO-52 TOP; -LIDO700A32 TOP
--- NOTE | 2025-05-10 02:49 | Physician Documentation ---
History of Present Illness ~ Chief Complaint: Groin Pain Stated Complaint: POSSIBLE HERNIA Time Seen by MD: 02:40 Primary Medical Doctor: NONE Mode of Arrival: POV HPI This is a 59-year-old gentleman who reports no significant past medical history presents for evaluation of what started out as a low back pain several days ago. 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 He thought he pulled a muscle while cutting fire wood and was a by lidocaine patches for relief. He states that today the pain had transitioned into his right lower quadrant/right groin. Feels like somebody kicked me in the nads". No particular palliating or aggravating factors were elicited with the patient. He did not attempt to treat it. He attempted tough it out with the pain had become too much. Describes pain as squeezing, but not ripping, not tearing. Upon summary flexion the gentleman feels that the pain is related and similar to prior kidney stones. He states that there are no masses protruding and it does not feel like a hernia. Pain is moderate to severe in its intensity. Denies any concerns for tobacco, alcohol or illicit substances use Medication Reconciliation Allergies: Coded Allergies: No Known Allergies (Unverified , 05/09/25) Scheduled Cephalexin*Monohydrate* (Keflex*), 1 CAP PO QID Lidocaine (Lidoderm), 1 PATCH TOP DAILY Scheduled PRN Acetaminophen (Acetaminophen), 1 TAB PO Q4HPRN PRN for pain or fever, (Reported) Ibuprofen* (Motrin*), 200 MG PO Q6H PRN PRN for pain, (Reported) Past Medical History Past Medical History: Kidney Stones, MRSA Abscess Past Surgical History: abdominal surgery, orthopedic surgeries Other Past Surgical History: I&D of abscess Patient History: Patient reports no known family medical history. Alcohol Use: Heavy Drug Use: marijuana Lives In: Home Review of Systems ROS 10 point review of systems was performed and unless noted above in HPI is negative for acute process/complaint. Physical Exam Vital Signs: Temperature: 97.7, Source: Temporal, Heart Rate: 70, Respiratory Rate: 16, BP: 135/87, Pulse Oximetry: 100, Weight: 72.500 Oxygen Flow Rate: 0 Physical Exam GENERAL: Awake, alert, oriented, GCS 15, no apparent distress, non-toxic appearing, answers questions, follows commands appropriately. Examined in bed 8., accompanied by female insurance defense paralegal HEENT: Atraumatic, normocephalic, pupils equal, extraocular muscles intact, sclerae anicteric, mucus membranes moist, oropharynx is clear, no stridor. NECK: supple, full active range of motion, trachea midline, no thyromegaly, no lymphadenopathy, no JVD. CARDIOVASCULAR: regular rate/rhythm, no murmurs/gallops/rubs, Pulses are 2+ in all extremities and symmetric. Capillary refill less than 2 seconds. PULMONARY: Nonlabored, good air movement ,no respiratory distress, speaking in full sentences, clear to auscultation bilaterally, no wheezing, no ronchi, no rales, no accessory muscle use. GASTROINTESTINAL: Soft, right lower quadrant tenderness to palpation, non- distended, normal active bowel sounds, no organomegaly, no pulsatile masses, no CVA tenderness. NEUROLOGIC: Lucid with normal mental status. Normal facial symmetry. Moves all extremities symmetrically and with purpose. No truncal ataxia. Speech is fluid without evidence of dysarthria or aphasia, no focal deficits appreciated. MUSCULOSKELETAL: There is full range of motion of all extremities. There is no joint pain or joint swelling or joint erythema. There is no muscle pain or tenderness or swelling. EXTREMITIES: warm, well-perfused, no cyanosis, no clubbing, no edema, no acute deformities. Skin: warm, dry, no rashes or lesions, no jaundice, no petechiae orpurpura. No ecchymosis. PSYCHIATRIC: Normal affect, normal insight, normal concentration. Focused exam: [] No guarding or rebound Progress Results/Orders Results/Orders Orders - SARY BECERRA DO Urinalysis, Cult If Indicated (05/10/25 02:44) Ct Abdomen Pelvis (05/10/25 02:44) Completed Orders - SARY BECERRA DO Cbc/Diff (05/10/25 02:44) Lipase (05/10/25 02:44) MG (05/10/25 02:44) Ct Abdomen Pelvis (05/10/25 02:44) Hs Troponin I W Calculations (05/10/25 02:44) CMP (05/10/25 02:44) Morphine 4mg/Ml Inj. (Morphine Inj.) (05/10/25 02:45) Ondansetron Inj. (Zofran 4mg/2ml Vial) (05/10/25 02:45) Iohexol 300mg/Ml 100ml Inj. (Omnipaque-3 (05/10/25 03:55) Medications Received in ER Medications (Trade) Dose Ordered Sig/Arsalan Route PRN Reason Start Time Stop Time Status Last Admin Dose Admin (morphine inj.) 4 mg ONCE ONCE IV 05/10/25 02:45 05/10/25 02:46 DC 05/10/25 03:52 4 MG (Zofran 4mg/2ml vial) 4 mg ONCE ONCE IV 05/10/25 02:45 05/10/25 02:46 DC 05/10/25 03:53 4 MG Vital Signs 05/09/25 05/10/25 05/10/25 05/10/25 23:16 02:22 02:26 03:52 Temp 97.7 Pulse 78 70 Resp 16 16 16 B/P (MAP) 110/80 135/87 (103) Pulse Ox 98 100 O2 Flow Rate 0 0 05/10/25 05/10/25 03:56 04:43 Pulse 66 Resp 16 16 B/P (MAP) 123/88 (100) Pulse Ox 100 O2 Flow Rate 0 Laboratory Tests Test 05/10/25 03:12 White Blood Count 5.4 Red Blood Count 4.19 L Hemoglobin 13.3 L Hematocrit 38.5 L Mean Corpuscular Volume 92.0 Mean Corpuscular Hemoglobin 31.7 H Mean Corpuscular Hemoglobin Concent 34.4 Red Cell Distribution Width 14.8 H Platelet Count 220 Mean Platelet Volume 8.0 Neutrophils (%) (Auto) 52.3 Lymphocytes (%) (Auto) 35.4 Monocytes (%) (Auto) 10.9 Eosinophils (%) (Auto) 0.9 Basophils (%) (Auto) 0.5 Neutrophils # (Auto) 2.8 Lymphocytes # (Auto) 1.9 Monocytes # (Auto) 0.6 Eosinophils # (Auto) 0.0 Basophils # (Auto) 0.0 CBC Comment Sodium Level 137 Potassium Level 3.8 Chloride Level 103 Carbon Dioxide Level 29.0 Anion Gap 5 L Blood Urea Nitrogen 18 Creatinine 1.06 Estimated GFR/1.73 m2 71 BUN/Creatinine Ratio 17.0 Glucose Level 82 Calcium Level 8.8 Magnesium Level 2.2 Total Bilirubin 0.4 Aspartate Amino Transf (AST/SGOT) 22 Alanine Aminotransferase (ALT/SGPT) 27 Alkaline Phosphatase 70 Troponin I High Sensitivity 11 Total Protein 7.2 Albumin 3.8 Globulin 3.4 Albumin/Globulin Ratio 1.1 Lipase 46 Chemistry Comments Medical Decision Making Findings Facility Status: ED Holds, RME process The plan was discussed with the patient, who demonstrates clear understanding of the plan and is in agreement with the plan unless otherwise noted in the chart. All questions have been answered, all concerns were addressed unless otherwise documented. I was available throughout their ED stay for frequent reassessment and questions. Differential Diagnoses (considered and possible or likely): [Differential diagnosis considered includes acute appendicitis, acute cholecystitis, pancreatitis, gastritis, PUD, diverticulitis, mesenteric ischemia, abdominal aortic aneurysm, bowel obstruction, enteritis, colitis, fecal impaction, volvulus, IBS, inflammatory bowel disease, specific food intolerance, peritonitis, perforated viscous, malignancy, UTI, abscess, and abdominal pain NOS. History, physical exam, and workup exclude many of the more serious causes listed above. ] ??Differential Diagnoses (considered and unlikely, not requiring evaluation currently): [See above]Aortic/great vessels dissection was considered but it is unlikely based on absence of ripping, tearing, migratory chest pain, absence of syncope or focal neurologic deficits, physical examination indicating equal and symmetric pulses. MDM Data Please see [facility] for the following: Independent Historians and external Records Review. Historian: [Patient] Independent Historians: ?[Female insurance defense paralegal] Medication Management: [Reviewed medication list] Social History and determinants: [Reviewed] Please see the body of the note for the following: Any independent interpretations of ECG, imaging studies. All vitals signs/haemodynamics, ordered tests were independently reviewed and interpreted by myself. Nursing triage complaint and vitals reviewed, additional nursing notes were reviewed as available and I agree unless otherwise noted or documented in contradiction in the chart Vital Signs: Independently reviewed Labs: Independently interpreted Imaging: Independently interpreted Old Medical Records: Independently reviewed, see [facility] for relevant summary and information Pulse Oximetry: [100%] interpreted as [normal on room air] by me [Cold Strip Roller: [Regular Rate, Regular rhythm, no ectopy, NSR] reviewed and interpreted by me] Additionally notably showing: [Hemodynamics reviewed. The patient does not f ebrile, not tachycardic, no evidence of hypotension respiratory distress. Laboratory studies are unremarkable. CBC is normal. No evidence of hemo concentration are anemia. No white count. Chemistry shows no electrolyte derangement, normal renal function. Troponin is normal. Lipase is also normal. CT was obtained and it shows no acute intra-abdominal process. Tiny right for a renal calculus.] Tests considered but not ordered include: [] Social Determinants of Health Impact: Patient was evaluated in [facility] [place] to healthcare due to below par ratio of patient to medical providers. [] Comorbid Conditions Impacting Present Evaluation and Care/Treatment: [None] Management Discussions with other Healthcare Providers: [] Treatment and Disposition Medication Management (Given or considered): [Pain management]. See EMR for details Consideration for Hospitalization/Escalation/Deescalation of Care: Admission for observation has been considered, [however the patient is able to tolerate p.o., their symptoms are controlled, they are able to rely on oral medications, and their chief complaint/diagnosis can be managed on outpatient basis.] ?ED Course:?[Patient is markedly improved. However there is no clear explanation for his pain. He was advised to return if his symptoms persist or worsen.] ?Shared decision making:?[Patient is hemodynamically stable for discharge home with follow with their primary care provider. [ ] Specific and cautious return precautions provided and discussed with full understanding. Any incidental findings were also discussed and follow up recommendations given. [] All questions answered. Patient/family were able to verbalize back return precautions. Patient/family agree to plan. Copies of imaging and laboratory studies were provided.] Code status:?FULL Please see the full Electronic Medical Record for full details of nursing documentation, medications list, other records of complete past medical history and conditions, vital signs, laboratory studies, and any radiologic study interpretations by radiologists. Portions of this note were completed using [employer] dictation software and as a result there may exist minor errors in spelling. I have reviewed elements of past family and social history and agree as included in note. Departure Disposition: 01 HOME / SELF CARE / HOMELESS Impression: Primary Impression: Flank pain Additional Impression: Groin pain Condition: Improved Discharge Instructions: Flank Pain, Adult Additional Instructions: Please return if the symptoms return or worsen. So far the CT labs do not reveal explanation for your symptoms. Referrals: NO PRIMARY CARE PROVIDER (PCP) Signature Scribe Signature: No scribe Attestation: This note accurately reflects clinical decisions, work performed by myself, DO MARIAM Deshpande NICHOLAS M DO May 10, 2025 02:49
[2025-05-10 03:27] LABS: MEAN PLATELET VOLUME 8.0 FL (7.4-10.4); RED CELL DISTRIBUTION WIDTH 14.8 % (11.5-14.5)
[2025-05-10] MEDS: morphine 4 MG/ML inj SYRINge IV ONE (03:52)
[2025-05-10] MEDS: ondansetron/PF 4mg/2ml inj IV ONE (03:53)
[2025-05-10] MEDS ORDERED: iohexol 300mg/ml 100ml inj. ONE (03:55)
[2025-05-10 04:02] LABS: CREATININE 1.06 MG/DL (0.60-1.10); TOTAL CARBON DIOXIDE 29.0 MMOL/L (24-32); eCRCL 76 ML/MIN; eGFR 71 ML/MIN
--- NOTE | 2025-05-10 04:09 | RADIOLOGY REPORT ---
Exam: CT CT ABDOMEN PELVIS W/ IV CONTRAST History: Right groin pain. Comparison Study: CT ABDOMEN PELVIS on DOS: 11/11/21 Technique: Multidetector spiral CT of the abdomen was performed from lung bases to pubic symphysis. A xial imaging was performed with intravenous contrast following the uneventful administration of 90 ml Omnipaque 300. Coronal and sagittal multiplanar reformats were obtained from the axial data set by tahmina dong technologist. Radiation Dose : 1. Abdomen/Pelvis: CTDIvol 10.4 mGy, DLP 500.4 mGy*cm. Findings: Lung Bases: Lung bases are clear. Visualized portions of the heart and pericardium are unremarkable. Liver: The liver is normal in size. No focal lesions. Gallbladder and Biliary Tree: The gallbladder is unremarkable. No intrahepatic or extrahepatic biliar y ductal dilatation. Spleen: Unremarkable Pancreas: The pancreas enhances normally and there are no focal lesions. The main pancreatic duct is not dilated Adrenal Glands: Unremarkable Kidneys: 3 mm nonobstructive stone in the lower pole of the right kidney. Left kidney is unremarkabl e. No hydronephrosis. GI tract: The stomach is grossly normal in appearance. No evidence of small bowel wall thickening or abnormal dilatation to suggest bowel obstruction. Colonic diverticulosis without acute diverticuliti s. The appendix is not visualized, it may be surgically absent. Peritoneum/mesentery/retroperitoneum. No evidence of free intraperitoneal air. No ascites. No evidenc e of suspicious lymphadenopathy. Abdominal Wall: Unremarkable. Vasculature: Abdominal aorta and main branches are unremarkable. Normal vascular enhancement. Urinary Bladder: Grossly unremarkable for degree of distention. Pelvic Organs: The prostate is enlarged measuring 4.9 cm. Seminal vesicles are unremarkable. Possible bilateral testicular hydroceles. Musculoskeletal: No aggressive focal bony lesions, acute fractures or dislocation. IMPRESSION: 1. Possible bilateral testicular hydroceles. Testicular ultrasound may be obtained for further evalu ation. Otherwise no acute process in the abdomen or pelvis. 2. Punctate nonobstructive right intrarenal calculus. 3. Prostatomegaly.
[2025-05-10 05:28] VITALS: BP 108/74; PULSE 56; RESP 16; TEMP 97.5; O2SAT 98
== END 2025-05-10 05:35 | disposition home or self-care (01) ==
LOC: ER 23:02
DX: R10.31 Right lower quadrant pain (principal); M54.50 Low back pain, unspecified; F12.90 Cannabis use, unspecified, uncomplicated; F10.90 Alcohol use, unspecified, uncomplicated; Z87.442 Personal history of urinary calculi; Z79.899 Other long term (current) drug therapy; Y90.9 Presence of alcohol in blood, level not specified
CPT/HCPCS: 36415; 74177; 80053; 83690; 83735; 84484; 85025; 96374; 96375; 99285; J2270; J2405; Q9967